=== PATIENT | female | born 1945 | race Caucasian/White ===

== ENCOUNTER → 2023-06-28 10:34 | Outpatient (REF) | payer MEDICARE, OTHER, SELFPAY | LOC: RCS 10:34 | PROVIDERS: ATTENDING PHYSICIAN Internal Medicine Cardiovascular Disease; FAMILY PHYSICIAN Family Medicine | DX: I50.22 Chronic systolic (congestive) heart failure (principal); I48.21 Permanent atrial fibrillation | CPT/HCPCS: 93225; 93226 ==

== ENCOUNTER → 2023-07-04 13:42 | Outpatient (REF) | payer MEDICARE, OTHER, SELFPAY | LOC: HWRCS 13:42 | PROVIDERS: ATTENDING PHYSICIAN Internal Medicine Cardiovascular Disease; FAMILY PHYSICIAN Family Medicine | DX: I50.22 Chronic systolic (congestive) heart failure (principal) | CPT/HCPCS: 93306 ==

== ENCOUNTER → 2024-08-13 09:18 | Outpatient (REF) | payer MEDICARE, OTHER, SELFPAY ==
[2024-08-13 10:06] LABS: % Basophils 0.6 % (0-2); % Eosinophils 1.9 % (0-6); % Immature Granulocytes 1.2 % (0-0.5); % Lymphocytes 24.8 % (20.5-51.1); % Monocytes 10.3 % (1.7-9.3); % Neutrophils 61.2 % (42.2-75.2); Absolute Eosinophils 0.1 10^3/uL (0-0.7); Absolute Immature Granulocytes 0.1 10^3/uL (0-0.05); Absolute Lymphocytes 1.3 10^3/uL (1.2-3.4); Absolute Monocytes 0.5 10^3/uL (0.1-0.6); Absolute Neutrophils 3.1 10^3/uL (1.4-6.5); Hematocrit 38.2 % (37.0-47.0); Hemoglobin 13.2 g/dL (12.0-16.0); Mean Corp Hgb Conc. 34.6 g/dL (33.0-37.0); Mean Corpuscular Hgb 33.7 pg (27.0-31.0); Mean Corpuscular Volume 97.4 fL (81.0-99.0); Mean Platelet Volume 8.5 fL (7.4-10.4); Nucleated Red Blood Cells % 0 %; Platelet Count 257 10^3/uL (130-400); Red Blood Cell Count 3.92 10^6/uL (4.20-5.40); Red Cell Dist. Width 12.4 % (11.5-14.5); White Blood Cell Count 5.1 10^3/uL (4.8-10.8)
[2024-08-13 10:27] LABS: NT-proBNP 1530 pg/ml
[2024-08-13 10:36] LABS: Blood Urea Nitrogen 18 mg/dl (7-17); Calcium 9.8 mg/dl (8.4-10.2); Carbon Dioxide 27 mmol/L (22-30); Chloride 95 mmol/L (98-107); Glucose 99 mg/dl (70-99); Potassium 4.8 mmol/L (3.5-5.1); Sodium 132 mmol/L (135-145); eGFR > 60.00
[2024-08-13 11:18] LABS: TSH Reflex To Free T4 1.63 uIU/ml (0.47-4.68)
== END ==
LOC: REG 09:18
PROVIDERS: ATTENDING PHYSICIAN Internal Medicine Cardiovascular Disease; FAMILY PHYSICIAN Family Medicine
DX: I50.22 Chronic systolic (congestive) heart failure (principal); I48.21 Permanent atrial fibrillation
CPT/HCPCS: 36415; 80048; 83880; 84443; 85025

== ENCOUNTER → 2024-09-04 12:41 | Outpatient (REF) | payer MEDICARE, OTHER, SELFPAY | LOC: RCS 12:41 | PROVIDERS: ATTENDING PHYSICIAN Internal Medicine Cardiovascular Disease; FAMILY PHYSICIAN Family Medicine | DX: I50.22 Chronic systolic (congestive) heart failure (principal) | CPT/HCPCS: 93306 ==

== ENCOUNTER → 2024-09-16 09:17 | Outpatient (REF) | payer MEDICARE, OTHER, SELFPAY ==
[2024-09-16 11:05] LABS: Osmolality Serum 284 mOsm/kg (275-300)
[2024-09-16 12:04] LABS: Blood Urea Nitrogen 22 mg/dl (7-17); Calcium 9.5 mg/dl (8.4-10.2); Carbon Dioxide 25 mmol/L (22-30); Chloride 100 mmol/L (98-107); Glucose 104 mg/dl (70-99); Potassium 4.5 mmol/L (3.5-5.1); Sodium 134 mmol/L (135-145); eGFR > 60.00
[2024-09-16 13:56] LABS: Urine Albumin 2+ (Neg - Trace); Urine Bilirubin Negative (Negative); Urine Character Slightly Cloudy (Clear); Urine Color Yellow; Urine Glucose 4+ (Negative); Urine Ketone Negative (Negative); Urine Leukocyte Negative (Negative); Urine Nitrite Negative (Negative); Urine Occult Blood 2+ (Negative); Urine Urobilinogen Negative (Neg - 1+)
[2024-09-16 14:29] LABS: Urine Squamous Cell >30 /LPF (Few)
[2024-09-16 14:31] LABS: Urine Bacteria Few (Negative); Urine White Cell 0-2 /HPF (0-5)
[2024-09-16 15:10] LABS: Osmolality Urine 471 mOsm/kg (300-900)
[2024-09-16 15:17] LABS: Protein/creatinine Ratio 0.2; Urine Protein 15 mg/dl; Urine Sodium 28 mmol/L (30-90)
== END ==
LOC: REG 09:17
PROVIDERS: ATTENDING PHYSICIAN Internal Medicine Cardiovascular Disease; FAMILY PHYSICIAN Family Medicine
DX: I50.22 Chronic systolic (congestive) heart failure (principal); R31.29 Other microscopic hematuria; E87.1 Hypo-osmolality and hyponatremia
CPT/HCPCS: 36415; 80048; 81003; 81015; 82570; 83930; 83935; 84156; 84300

== ENCOUNTER → 2025-02-26 13:02 | Outpatient (REF) | payer MEDICARE, OTHER, SELFPAY | LOC: RCS 13:02 | PROVIDERS: ATTENDING PHYSICIAN Internal Medicine Cardiovascular Disease; FAMILY PHYSICIAN Family Medicine | DX: I34.0 Nonrheumatic mitral (valve) insufficiency (principal); I50.22 Chronic systolic (congestive) heart failure | CPT/HCPCS: 93306 ==

== ENCOUNTER → 2025-03-04 11:55 | Outpatient (REF) | payer MEDICARE, OTHER, SELFPAY | LOC: SDSPAT 11:55 | PROVIDERS: ATTENDING PHYSICIAN Internal Medicine; FAMILY PHYSICIAN Family Medicine; OTHER PHYSICIAN Internal Medicine Cardiovascular Disease | DX: I34.0 Nonrheumatic mitral (valve) insufficiency (principal) | CPT/HCPCS: 93005 ==

== ENCOUNTER 2025-03-19 07:02 | Day surgery (SDC) | payer MEDICARE, OTHER, SELFPAY ==
[2025-03-04 12:48] VITALS: BMI 35.1
== END 2025-03-19 09:45 | disposition home or self-care (01) ==
LOC: CATH 07:02
PROVIDERS: ATTENDING PHYSICIAN Internal Medicine; FAMILY PHYSICIAN Family Medicine; OTHER PHYSICIAN Internal Medicine Cardiovascular Disease
DX: I08.1 Rheumatic disorders of both mitral and tricuspid valves (principal); I08.8 Other rheumatic multiple valve diseases; E66.9 Obesity, unspecified; I11.0 Hypertensive heart disease with heart failure; I27.20 Pulmonary hypertension, unspecified; I42.8 Other cardiomyopathies; I48.21 Permanent atrial fibrillation; I50.22 Chronic systolic (congestive) heart failure; Z68.35 Body mass index [BMI] 35.0-35.9, adult; Z79.899 Other long term (current) drug therapy; Z79.01 Long term (current) use of anticoagulants; Z90.710 Acquired absence of both cervix and uterus; E87.1 Hypo-osmolality and hyponatremia
CPT/HCPCS: 93312; 93320; 93325

== ENCOUNTER → 2025-03-31 13:11 | Outpatient (REF) | payer MEDICARE, OTHER, SELFPAY | LOC: HWRAD 13:11 | PROVIDERS: ATTENDING PHYSICIAN Thoracic Surgery (Cardiothoracic Vascular Surgery); FAMILY PHYSICIAN Family Medicine | DX: I34.0 Nonrheumatic mitral (valve) insufficiency (principal) | CPT/HCPCS: 71250 ==

== ENCOUNTER 2025-04-01 07:18 | Day surgery (SDC) | payer MEDICARE, OTHER, SELFPAY ==
[2025-04-01] VITALS (10 sets, daily range): BP systolic 81–125; BP diastolic 41–79; BMI 33.3
[2025-04-01] MEDS: NSS 248 ML IV (08:17)
[2025-04-01] MEDS: NSS 1000 IV (12:58)
--- NOTE | 2025-04-01 13:44 | ITS.CL.PN ---
[facility] - Procedure Note
Procedure
Procedure Note:
CARDIAC CATHETERIZATION REPORT
Date of Procedure: 04/01/2025
Referring: Dr. Xavi Virgen MD
Indication: Preoperative assessment ahead of planned surgical mitral valve repair
PROCEDURE(S)
1. right heart catheterization
2. left heart catheterization
3. coronary angiography
ACCESS
1. 6F right radial artery (closure: radial band)
2. 5F right antecubital vein (closure: manual hemostasis)
CATHETERS
1. 5F [place]-Mar[place]
2. 6F JR4
3. 6F JL3.5
MODERATE SEDATION: 25 minutes of moderate sedation was utilized. An independent clinical laboratory medical director was present to assist with and help manage the patient's level of consciousness and physiologic status.
HEMODYNAMIC DATA
LV 128/10 (EDP 18) mmHg
AO 134/71 (mean 100) mmHg
RA 14 mmHg
RV 51/7 (EDP 13) mmHg
PA 53/25 (mean 36) mmHg
PCWP 25 mmHg
SaO2 95.5%
SvO2 68.3%
Hb 11.7 g/dL
CO/CI 5.29/2.89 L/min/m2
SVR 1299 dsc*-5
PVR 2.1 Wood units
CORONARY ANGIOGRAPHY
Dominance: Left
LM: Large, normal
LAD: Large vessel giving rise to a large D2 before wrapping around the apex. There is mild nonobstructive disease only.
LCx: Large vessel giving rise to a small OM1, small OM2, moderate caliber LPL1, small LPL2, and small LPDA. There is mild nonobstructive disease only.
RCA: Small and nondominant
RADIATION: dose 124 mGy; DAP 10.1 Gy*cm2; fluoroscopy time 6.1 min
CONCLUSIONS
1. Moderately elevated biventricular filling pressures and normal cardiac output
2. No aortic valve stenosis
3. Trivial coronary artery disease and a left dominant system
RECOMMENDATIONS
1. Proceed with workup for mitral valve repair
2. Primary prevention of coronary artery disease
Copy to: Dr. Lefty Reveles MD (interstate bus driver); Dr. Xavi Virgen MD (CT surgery); Dr. Caroline Vu MD (PCP)
Signed: Darvin Steel MD, PhD
== END 2025-04-01 13:51 | disposition home or self-care (01) ==
LOC: CATH 07:18
PROVIDERS: ATTENDING PHYSICIAN Student in an Organized Health Care Education/Training Program; FAMILY PHYSICIAN Family Medicine; OTHER PHYSICIAN Internal Medicine Cardiovascular Disease
DX: I25.10 Atherosclerotic heart disease of native coronary artery without angina pectoris (principal); I48.21 Permanent atrial fibrillation; I08.1 Rheumatic disorders of both mitral and tricuspid valves; Z79.01 Long term (current) use of anticoagulants; Z79.899 Other long term (current) drug therapy; I27.20 Pulmonary hypertension, unspecified; E87.1 Hypo-osmolality and hyponatremia
CPT/HCPCS: 99152; 99153; 93460; C1769; C1894; Q9967

== ENCOUNTER 2025-04-08 05:01 | Inpatient (IN) | payer MEDICARE, OTHER, SELFPAY ==
[2025-03-28 12:06] VITALS: BMI 34.8
[2025-03-28 13:13] LABS: Urine Character Clear (Clear)
[2025-03-28 13:13] LABS: Hematocrit 37.3 % (37.0-47.0); Hemoglobin 12.4 g/dL (12.0-16.0); Mean Corp Hgb Conc. 33.2 g/dL (33.0-37.0); Mean Corpuscular Volume 95.4 fL (81.0-99.0); Nucleated Red Blood Cells % 0 %; Platelet Count 280 10^3/uL (130-400); Red Cell Dist. Width 12.6 % (11.5-14.5)
[2025-03-28 13:21] LABS: INR 1.34; PT 16.7 Sec (11.4-14.6)
[2025-03-28 13:40] LABS: Urine Red Blood Cell 0-2 /HPF (0-2); Urine White Cell None Seen /HPF (0-5)
[2025-03-28 13:42] LABS: ALT (SGPT) 26 U/L (0-35); AST (SGOT) 27 U/L (14-36); Albumin 4.4 g/dl (3.5-5.0); Alkaline Phosphatase 48 U/L (38-126); Blood Urea Nitrogen 19 mg/dl (7-17); Calcium 9.7 mg/dl (8.4-10.2); Carbon Dioxide 28 mmol/L (22-30); Chloride 94 mmol/L (98-107); Estimated Creatinine Clearance 58 ml/min; Glucose 83 mg/dl (70-99); Glycohemoglobin (HgbA1c) 5.7 % (4.0-5.9); Potassium 4.5 mmol/L (3.5-5.1); Sodium 130 mmol/L (135-145); Total Protein 7.1 g/dl (6.3-8.2); eGFR > 60.00
--- NOTE | 2025-03-28 14:33 | CM ---
spoke to pt in PAT, we discussed preop Mitral valve teaching including sternal and driving restrictions. she is prev indep, lives wirh her husb in an apt with no steps to enter. she has the CT surgery book, soap and in structions, she is agreeable
to a f/u visit from the ct transitional care nurses after dc. plan is for MVR 04/08, cm role explained and all questions answered.
[2025-04-08] VITALS (15 sets, daily range): BP systolic 83–134; BP diastolic 50–78; BMI 34.0
[2025-04-08] MEDS: LOPRESSOR 12.5 MG PO (05:48)
[2025-04-08] MEDS: MAGNESIUM OXIDE 400 MG PO (05:48)
[2025-04-08] MEDS: PROTONIX 40 MG PO (05:48)
[2025-04-08] MEDS: BACTROBAN 2% OINTMENT 1 APPLIC NASAL ×2 (05:49→21:02)
--- NOTE | 2025-04-08 06:29 | W.CVOR.SURPR ---
CVOR Surgeon Immed Pre Op
-
I have examined this patient prior to performance of the scheduled procedure.
The patient's condition is unchanged from the time of the dictated/written History and
Physical and the patient is able to undergo the scheduled procedure.
MVrR (high chance for replacement) + TVr + MAZE + LAAE
[2025-04-08 07:23] LABS: ACT+ - POC 197 Seconds (82-134)
[2025-04-08 07:47] LABS: Urine Character Clear (Clear)
[2025-04-08 08:26] LABS: ACT+ - POC 560 Seconds (82-134)
[2025-04-08 08:41] LABS: ACT+ - POC 505 Seconds (82-134)
--- NOTE | 2025-04-08 08:49 | CM ---
Reviewed chart. Mrs. Dasilva is in the operating room today. Prior to admission she resides with her spouse in an apartment without any steps to enter. Prior to admission she was independent with adls. Will need to see her functional status after
surgery to see if has any skilled care needs. Medical work-up in progress. The discharge plan is to return home with her spouse and a home visit by the Transitional Care Nurse when medically stable.
[2025-04-08 08:57] LABS: B.E. - POC 1.1 mmol/L; Glucose - POC 101 mg/dl (70-99); HCO3 - POC 25 mmol/L (21-28); Hematocrit - POC 29 % PCV (37-47); Hemodilution- POC Yes; Hemoglobin Calculated - POC 9.9; Ionized Calcium - POC 1.07 mmol/L (1.15-1.33); Lactate - POC 0.38 mmol/L (0.36-0.75); O2 Saturation %Calculated-POC 100.0 % (94-98); PCO2 - POC 36 mmHg (35-48); PO2 - POC 417 mmHg (83-108); POC Comment CPB; Potassium - POC 3.4 mmol/L (3.5-5.1); Sodium - POC 138 mmol/L (136-145); Specimen Type - POC Arterial; pH - POC 7.45 (7.35-7.45)
[2025-04-08 09:07] LABS: ACT+ - POC 587 Seconds (82-134)
[2025-04-08 09:24] LABS: B.E. - POC -0.3 mmol/L; Glucose - POC 112 mg/dl (70-99); HCO3 - POC 28 mmol/L (21-28); Hematocrit - POC 32 % PCV (37-47); Hemodilution- POC Yes; Hemoglobin Calculated - POC 11.0; Ionized Calcium - POC 1.11 mmol/L (1.15-1.33); Lactate - POC 0.38 mmol/L (0.36-0.75); O2 Saturation %Calculated-POC 99.8 % (94-98); PCO2 - POC 60 mmHg (35-48); PO2 - POC 271 mmHg (83-108); POC Comment CPB; Potassium - POC 4.6 mmol/L (3.5-5.1); Sodium - POC 138 mmol/L (136-145); Specimen Type - POC Arterial; pH - POC 7.27 (7.35-7.45)
[2025-04-08 09:35] LABS: ACT+ - POC 588 Seconds (82-134)
[2025-04-08 09:59] LABS: B.E. - POC -0.3 mmol/L; Glucose - POC 141 mg/dl (70-99); HCO3 - POC 24 mmol/L (21-28); Hematocrit - POC 29 % PCV (37-47); Hemodilution- POC Yes; Hemoglobin Calculated - POC 9.8; Ionized Calcium - POC 1.09 mmol/L (1.15-1.33); Lactate - POC 0.41 mmol/L (0.36-0.75); O2 Saturation %Calculated-POC 99.9 % (94-98); PCO2 - POC 34 mmHg (35-48); PO2 - POC 281 mmHg (83-108); POC Comment CPB; Potassium - POC 4.8 mmol/L (3.5-5.1); Sodium - POC 137 mmol/L (136-145); Specimen Type - POC Arterial; pH - POC 7.44 (7.35-7.45)
[2025-04-08 10:06] LABS: ACT+ - POC 214 Seconds (82-134)
[2025-04-08 10:16] LABS: ACT+ - POC 123 Seconds (82-134)
[2025-04-08 10:24] LABS: B.E. - POC -2.6 mmol/L; Glucose - POC 94 mg/dl (70-99); HCO3 - POC 22 mmol/L (21-28); Hematocrit - POC 32 % PCV (37-47); Hemodilution- POC Yes; Hemoglobin Calculated - POC 10.8; Ionized Calcium - POC 1.17 mmol/L (1.15-1.33); Lactate - POC < 0.30 mmol/L (0.36-0.75); O2 Saturation %Calculated-POC 100.0 % (94-98); PCO2 - POC 38 mmHg (35-48); PO2 - POC 425 mmHg (83-108); POC Comment PRE; Potassium - POC 3.8 mmol/L (3.5-5.1); Sodium - POC 138 mmol/L (136-145); Specimen Type - POC Arterial; pH - POC 7.38 (7.35-7.45)
--- NOTE | 2025-04-08 10:59 | W.PN.CT.SURG ---
CT Surgery Operative Note
-
CARDIAC SURGERY OPERATIVE REPORT
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
Postoperative Diagnosis: Same
Procedure(s) Performed:
1. Central sternotomy with aortic and bicaval cannulation
2. Radical mitral valve repair [cleft closure of P2 P3 and 32 mm band annuloplasty]
3. Simple tricuspid valve repair [30 mm band annuloplasty]
4. Left atrial maze [using RF and cryoablation] left atrial appendage exclusion
5. Placement of temporary atrial ventricular pacing wires
6. Transesophageal echocardiography
Date of Surgery: 04/08/2025
Comorbidities:
1. 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
2. Functional tricuspid valve insufficiency
3. Persistent A-fib on chronic anticoagulation
4. Pulmonary hypertension
5. Nonischemic cardiomyopathy
Attending Surgeon: Xavi Virgen MD, MS
Assistants: Cecille Guardado PA-C (present and necessary to media center assistant, retraction, suction, exposure, suture management, and wound closure under my direction)
Anesthesiology: Harrison Escalante MD and Jae Arita CRNA
Scrub and Circulating RNs: Anisha Cooper, [facility] Tech, Bryan Nichols RN
Computer Systems Manager: Heather Cowan CCP
Anesthesia: GETA
EBL: per perfusion records
Products: None, CellSaver
CPB Time: 83 minutes
Aortic Cross Clamp Time: 66 minutes
Indication(s) for Procedures: This is a 79-year-old female with known mitral valve insufficiency has been developing worsening shortness of breath while walking and doing housework. She has noticed this has been progressing over the last year. Her
EF is low normal at 50% with no significant regional wall motion abnormalities. Her mitral valve had a combination of annular dilatation as well as some degeneration of the P2 scallop and what look like retracted P3 leaflet. She was not a
candidate for MV STEFANO when discussed in multidisciplinary setting. She was offered surgical intervention in the form of possible mitral valve repair or replacement as well as bicuspid valve repair and left atrial ablation and appendage exclusion.
Mitral Valve Description: Dilated annulus, retracted P3 leaflet that was filled underneath itself, but overall the leaflet tissue appeared to be usable.
Tricuspid Valve Description: Dilated annulus.
Findings: Left ventricular ejection fraction preoperatively is 55% with no significant regional wall motion abnormalities. Cardiac index starting the surgery was 1.5 without inotropic support. Following surgery EF remained the same at 55% with no
new regional wall motion abnormalities. Cardiac index had improved significantly to 2.0 on low-dose dobutamine at 3. Her mitral valve was repaired using a combination of cleft closure at P2 and P3 as well as a 32 mm band annuloplasty securing the
valve from trigone to trigone. The P3 scallop was present but filled underneath itself. I unraveled it and then tacked it to the free margin of the P2 leaflet and essentially close this cleft. A total of 9 nonpledgeted 2 Ethibond sutures were
placed circumferentially securing the band into place with core knots. Tricuspid valve was repaired using a 30 mm band annuloplasty from the midportion of the septal leaflet to the anterior septal commissure using a total of 8 nonpledgeted 2
Ethibond sutures with core knots. A full left atrial ablation was performed, see the ablation lines below. Left atrial appendage was also verified to be free of any thrombus or debris preoperatively and found to be totally occlusive
postoperatively after applying a 40 mm clip flush to the base. After, of cardiopulmonary bypass, there was no residual mitral valve insufficiency, the mean gradient across the mitral valve was 3 mmHg. There was no residual tricuspid valve
insufficiency. She did not require any blood products. She was actually in sinus rhythm and only on low-dose dobutamine at 3.
Ablation Lines:
1. Box lesion to posterior LA wall
2. NICOLE lesion + NICOLE Exclusion + Division of Ligament of Felix
3. Coronary sinus lesion
4. Posterior mitral annular line toward P2/P3
Specimen(s): None.
Prosthesis: 32 mm Laguna physio flex mitral valve annuloplasty band, serial #[id number], 30 mm Medtronic triad tricuspid valve band, serial number [id number], 40 mm left atrial appendage clip, serial #[id number].
Description of Procedure: The patient was taken to the operating room. Their identity and procedure to be performed were verified and they were positioned supine on the operating table. Induction via general anesthesia with endotracheal intubation
was performed and central venous access and arterial monitoring were inserted. A preoperative transesophageal echocardiogram was performed to assess cardiac function and valvular function. The patient was then prepped and draped from chin to feet in
a sterile fashion. A preoperative time-out was performed with all members of the team present. A midline chest incision was performed along with median sternotomy. The innominate vein was isolated. Full heparinization was given (a total of 50,000
units). We created a pericardial well. The aortic cannulation site was chosen where it was soft, pliable, and free of calcium. Cannulation was performed with an arterial cannula in the ascending aorta, angled metal tip cannular in the superior vena
cava and straight bendable cannula in the inferior vena cava. The arterial cannula line had an appropriate bounce and correlating pressures. Next, a root vent/antegrade cannula was inserted into the ascending aorta. The ACT was confirmed to be over
400 and retrograde autologous priming was performed before commencing cardiopulmonary bypass. The SVC and IVC were then circumferentially freed and the encompass clamp was then passed underneath the SVC and IVC across the transverse and oblique
sinuses, respectively. 3 successful ablations were then performed using the encompass clamp. The pulmonary artery was away from the aorta to facilitate a clamp site. Sondergaard�s groove was developed. The aortic cross-clamp was placed
after decreasing the flow on the bypass and mean arterial pressure. A total of 1.2L initial dose of antegrade Del-Nido cardioplegia solution was given and planned for re-dosing every 6 minutes as necessary. There was rapid electro-mechanical arrest
of the heart at 300 cc of cardioplegia. The left ventricle was observed for distention on echocardiogram and manual palpation. Cold slush was placed into a lap on the RV and we systemically cooled to 34 degrees centigrade. Once heart was fully
arrested was rotated medially and the ligament of Felix was divided in the left atrial appendage was clipped flush the base with a 40 mm device.
Carbon dioxide was used to flood the field the mitral valve was accessed via the left atrial followed by valve analysis. Cryoablation was then performed to the coronary sinus lesion in the mitral isthmus as well as left atrial appendage line
connecting the box lesion. The mitral valve was repaired as described above. The left ventricular vent was repositioned across the mitral valve into the left ventricular and the left atrium was closed with a 3-0 prolene. I then placed Vesseloops
around the SVC and IVC in order to perform isolation and the right atrium was open in the a long 2 no fashion. Stay sutures were then placed to facilitate exposure and the tricuspid valve was repaired with a band annuloplasty going from the mid
septal portion of the annulus to the anterior septal commissure. I then visualized the [place] to make sure that it was not entrapped inadvertently within the annuloplasty band. It was not the RA suture line was closed in two layers with 5-0 prolene
in a running fashion. The snares were then removed.
De-airing maneuvers were performed and temporary atrial and ventricular pacing wires were placed at the SVC/RA junction and base of the right ventricle, respectively. The patient was placed in a Trendelenburg position and flows on bypass were
lowered. The aortic cross clamp was removed and flows were slowly brought back up. The left atrial suture line was hemostatic. Transesophageal echocardiography revealed no evidence of systolic anterior motion and ventricular function was normal.
Once de-airing was satisfactory the left ventricular and root vents were removed. After verifying acceptable parameters, we initiated weaning from cardiopulmonary bypass. Once we were off cardiopulmonary bypass, the venous cannulas was clamped and
removed sequentially. A test dose of protamine was administered and the patient was monitored for any adverse reaction before resuming protamine. Once half of the protamine dose was delivered, pump suckers were turned off and the systolic blood
pressure was lowered for aortic decannulation. The aortic cannula was removed and purse strings were tied down. All cannulation sites were oversewn with a 4-0 prolene. The left atrial suture line was inspected and hemostasis was confirmed.
Mediastinal hemostasis was obtained. Two #24 Mian drains were placed within the pericardium and a single #19 Mian drain to the right hemithorax. The sternum was approximated with 4 #7 single and 3 #8 double stainless steel wires. Fascia was
approximated with #1 vicryl suture. The subcutaneous, dermis and epidermis were closed in layers in a running fashion. The skin wound was cleansed and dressed.
All instrument, sponge, and needle counts were confirmed to be correct x 2 at the end of the operation. The patient was transferred to the cardiac intensive care unit in critical but stable condition.
I, Dr. Xavi Virgen, was present, scrubbed for, and performed all critical elements of this procedure.
Xavi Virgen MD, MS
Cardiothoracic Surgeon
[facility]
This dictation was created using the [employer] dictation system. Please excuse any grammatical, typographical, or 'sound alike' errors
--- NOTE | 2025-04-08 11:05 | W.PN.CD ---
Addendum entered and electronically signed by Raheem Palma MD 04/08/25 14:23:
I reviewed and agree with the note by BEENA and it accurately reflects our care.
I saw and evaluated the patient, and I provided the substantive portion of the medical decision making. My assessment and plan is below:
79F with heart failure with midrange ejection fraction, NICM, pulmonary hypertension from HF, permanent atrial fibrillation, severe MR, and moderate TR presents for cardiac surgery, now s/p mitral and tricuspid valve repair. She remains intubated
but opens eyes to voice and is responding appropriately. Following all commands.
Physical exam: Well adhesed midsternotomy scar, RRR, no murmurs, clear lungs anteriorly, no lower extremity edema
Telemetry: Atrial paced
ECG: Normal sinus rhythm with first-degree AV block, nonspecific ST�T wave abnormality
Severe MR s/p mitral valve repair, TR status post tricuspid valve repair by Dr. Virgen on 04/08. Continue routine postoperative care per CT surgery. Plan is to extubate patient shortly. Wean vasoactive infusions as tolerated.
Atrial fibrillation: Currently in an atrial paced rhythm. Resume anticoagulation when safe from surgical standpoint.
We will continue to follow along with you.
Original Note:
Today's Communication / Plan
-
Follow telemetry
Extubation per CT surgery
Impression / Plan
-
I/P: 79F with heart failure with midrange ejection fraction, NICM, pulmonary hypertension from HF, permanent atrial fibrillation, severe MR MR, and moderate TR presents for cardiac surgery
Primary scrip clerk: Dr. Reveles
Severe mitral regurgitation status post radical mitral valve repair (cleft closure of P2 P3 and 32 mm band annuloplasty) & tricuspid regurgitation status post repair (30 mm band) on 04/08/[address] Virgen
- Left atrial maze and 40 mm NICOLE clip during surgery
- Pre-EDDIE LVEF 55%, post 55% without new RWMA, MV MG 3 mmHg & without TV insufficiency
- CI 1.5 starting the surgery without inotropic support
- CI now > 2.0, was on dobutamine, now on Cardene, she did not require blood products
- EKG sinus rhythm with prolonged QTc, EKG in a.m.
Heart failure with midrange ejection fraction (LVEF 50%), chronic
- Follow volume status during recovery
- Resume GDMT when able
- Higher doses of spironolactone was associated with mild hyponatremia
Permanent atrial fibrillation
- Currently being paced and in sinus rhythm
- Oral anticoagulation: Apixaban on hold
- [id number] score of 5 (HF, age 79, aortic plaque, female gender)
Physical Exam
Vital Signs/Labs
Vital Signs
Temp Pulse Resp BP Pulse Ox
97.7 F 65 16 134/69 100
04/08/25 05:22 04/08/25 05:22 04/08/25 05:22 04/08/25 05:09 04/08/25 05:22
04/07/25 04/08/25 04/09/25
06:59 06:59 06:59
Actual Weight 179 lb 10.828 oz
PT 16.7 Sec (11.4-14.6) H 03/28/25 12:19
INR 1.34 03/28/25 12:19
Physical Exam
Constitutional: No acute distress and Comfortable
EENT: Anicteric and Moist mucous membranes
Cardiovascular: Rhythm & rate is regular, Pedal edema is absent and S1S2 is normal
Respiratory: Lungs clear to auscul. and Other (Mechanical ventilation)
GI: Soft, Distention absent and Flat
Neuro/Psych: Other (Sedated)
Other: Skin (Warm and dry without edema)
Data Reviewed
-
Date of Service: April 08, 2025
EKG: Report Reviewed by me
Echo: Report Reviewed by me
Labs: Labs Reviewed by me
Old Records: Reviewed
[2025-04-08 11:10] LABS: Glucose - Point of Care 118 mg/dl (70-99)
--- NOTE | 2025-04-08 11:13 | W.PN.UPDATE ---
Update Note
Progress Note Update
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
IV fluids: 1100
U.O.:� 400
Blood:� none
Wires:� A + V wires
Drips: Dobutamine @ 3, precedex, Cardene @ 2.5
NEURO: sedated, pupils +2mm B/L
RESP: #8OT @24cm> 500/100%/14/5. Lungs clear B/L. 2 mediastinal (5cc on arrival) and R pleural (5cc on arrival) chest tubes to -20cm suction. Sanguineous drainage
CV: RRR +S1, S2, no S3, no�rub, no murmur. Dermabond to median sternotomy. RIJ w/[place] locked @ 40cm. PA 46/20; CVP 10; Temp 94.1F
ABD: large, round, soft, no BS
EXT: no edema, +2/4 DP pulses B/L, no femoral bruit, left radial A-line intact
: Hurtado with clear yellow urine
�
A/P: POD #0 s/p Mitral repair # 32mm band, tricuspid repair #30mm band, MAZE
EDDIE: Nl EF, MV mean 3mmHg, no MR, no PVL
- wean and extubate
- will need instruction regarding antibiotic prophylaxis for dental and invasive procedures
- need pre discharge TTE-ordered for 04/11
- initial CXR with ETT at tona, pulled back 2 cm & repeat CXR with ETT approx 1cm above tona. [place] inserted to 50cm & good position on CXR
�
# acute surgical blood loss anemia-expected
- trend CBC
�
# AF (on Eliquis)
CHADs-VASc score: 5�points (age, gemder, HF hx, HTN). Stroke risk was 7.2% per year in >90,000 patients (the [place] Atrial Fibrillation Cohort Study) and 10.0% risk of stroke/TIA/systemic embolism.
�
# PreDM (A1C 5.7)
- insulin infusion x 24h
- on Jardiance @ home
- may need SSI
# HFpEF (50%)
- on metoprolol, spironolactone, Jardiance, Entresto @ home
# Chronic hyponatremia (baseline Na+ 130)
- resume diuretic as BP permits
�
# Class I obesity (BMI 33.9)
- calorie restrict diet
[2025-04-08 11:18] LABS: Hematocrit 31.2 % (37.0-47.0); Hemoglobin 10.6 g/dL (12.0-16.0); Platelet Count 172 10^3/uL (130-400)
[2025-04-08 11:19] LABS: B.E. -1.7 mmol/L; HCO3 23.0 mmol/L (21-28); O2 Saturation % 100.0 % (94-98); PCO2 38 mmHg (32-35); PO2 256 mmHg (83-108); Potassium 4.1 mMOL/L (3.5-5.1); Sodium 133 mMOL/L (136-145)
--- NOTE | 2025-04-08 11:30 | PTCARENOTE ---
Patient received from CVOR at 1100; Sedated and intubated; NSR w/ AVB per monitor; VSS; palpable pulses present; Lungs diminished at bases; ETT size 8 positioned and secured at 22 cm @ lip; Ventilator settings SIMV 12/500/5/FiO2 40%; CTx3 to -20 cm
wall suction draining bloody drainage; Hypoactive BS; Hurtado catheter in place draining clear, yellow urine; Sternal incision glued, approximated, CT dressing CDI; L radial A-line in place, [place]-taryn advanced from 40 to 50 at bedside per CTNP in RIJ
Cordis - all lines zeroed and leveled; PIVx1; insulin/precedex/dobut infusing - see nursing flowsheets for further details; see nursing documentation for further details.
[2025-04-08 11:36] LABS: INR 1.61; PT 19.3 Sec (11.4-14.6)
[2025-04-08 11:37] LABS: APTT 32.0 Sec (23.4-35.0)
[2025-04-08 12:01] LABS: Glucose - Point of Care 146 mg/dl (70-99)
[2025-04-08] MEDS: ANCEF 10 IV ×2 (12:07)
[2025-04-08] MEDS: NEURONTIN PO ×2 (12:08→15:59)
[2025-04-08] MEDS: NSS 500 IV (12:08)
[2025-04-08 12:13] LABS: Blood Urea Nitrogen 17 mg/dl (7-17); Estimated Creatinine Clearance 76 ml/min; Glucose 112 mg/dl (70-99); Magnesium 2.8 mg/dl (1.6-2.3)
[2025-04-08 12:57] LABS: Glucose - Point of Care 115 mg/dl (70-99)
[2025-04-08] MEDS: OFIRMEV 100 IV (13:22)
--- NOTE | 2025-04-08 13:52 | CON.INTV ---
Consultation
Consultation Request
Date/Time Consultation Requested: 04/08/2025
Date/Time Consultation Performed: 04/08/2025
Requesting Provider: Dr. Virgen
Performing Provider: Dr. Sergio Cueva
Reason for Consultation: Status post radical mitral valve repair
Medical History
-
History of Present Illness:
79-year-old woman with history of atrial fibrillation, mitral irritation, pulmonary hypertension, nonischemic cardiomyopathy who was admitted to the hospital for mitral valve repair. Procedure underwent on 04/08/2025 without complications.
Critical care consulted for postoperative care.
Patient currently in the critical care unit, intubated and sedated.
Records reviewed.
Past Medical History
Past Medical History: Other (See assessment and plan)
Social History
Tobacco: Other (Never)
Alcohol: Daily (1 small drink)
Personal:
Family History
Family History: Reviewed & Not Pertinent
Allergies / Home Medications
Allergies
Allergy/AdvReac Type Severity Reaction Status Date / Time
No Known Allergies Allergy Verified 04/01/25 07:50
Home Medications
�Medication �Instructions �Recorded �Confirmed �Last Taken �Type
acetaminophen 325 mg tablet 325 - 650 mg PO Q6H PRN Pain 04/01/22 04/08/25 04/07/25 16:00 History
(Tylenol)
calcium 600 mg (as 1 tab PO BID Supplement 02/28/25 04/08/25 03/31/25 08:00 History
carbonate)-vitamin D3 10 mcg (400
unit) tablet (Calcium 600 + D(3))
metoprolol succinate 100 mg 100 mg PO HS Heart Failure 02/28/25 04/08/25 04/07/25 20:00 History
tablet,extended release 24 hr
sacubitril 97 mg-valsartan 103 mg 1 tab PO BID Heart Failure 02/28/25 04/08/25 04/05/25 20:30 History
tablet (Entresto)
spironolactone 25 mg tablet 12.5 mg PO DAILY Fluid 02/28/25 04/08/25 04/05/25 10:00 History
Retention/Swelling
vit C 250 mg-vit E 90 mg-zinc 40 1 tab PO BID Supplement 02/28/25 04/08/25 04/07/25 20:00 History
mg-copper 1 [id number]
capsule (PreserVision AREDS-2)
empagliflozin 10 mg tablet 10 mg PO DAILY Heart Failure 03/19/25 04/08/25 04/04/25 History
(Jardiance)
apixaban 5 mg tablet (Eliquis) 5 mg PO BID Blood Clot 04/07/25 04/08/25 04/04/25 20:30 History
Prevention/Tx
furosemide 40 mg tablet (Lasix) 40 mg PO DAILY Fluid 04/07/25 04/08/25 04/07/25 08:00 History
Retention/Swelling
Review of Systems
-
Unable to Obtain full review of systems at this time due to: Patient Intubation
Vitals / Labs / Diagnostic Testing
Vital Signs
Temp Pulse Resp BP Pulse Ox
95.7 F L 76 12 112/64 97
04/08/25 13:00 04/08/25 13:00 04/08/25 13:00 04/08/25 13:00 04/08/25 13:00
Lab Data
04/08/25 10:58
Laboratory Results
04/08/25
10:58
PT 19.3 H
INR 1.61
APTT 32.0
pH 7.39
pCO2 38 H
pO2 256 H
HCO3 23.0
O2 Delivery Level
Diagnostic Testing:
Physical Exam
-
HEENT: Normocephalic and Other (ET tube in place without secretion)
Cardiovascular: S1/S2
Respiratory: Clear
GI: Soft and Non Distended
Neurology: Other (Sedated, on mechanical ventilation)
Skin: Warm
General: Comfortable
Assessment
-
79-year-old woman with past medical history noted. Electively admitted for mitral valve repair. Procedure underwent without complications on 04/08/2025.
Critical care consulted for postoperative management.
Status post radical mitral valve repair 04/08/2025-Dr. Virgen
Postoperative mechanical ventilation
Postoperative blood loss anemia
Conditions present prior admission:
History of mitral valve regurgitation-normal LVEF.
Heart failure with preserved ejection fraction
Permanent atrial fibrillation-on chronic anticoagulant
Hypertension
Assessment and plan:
He doing well postop-currently on mechanical ventilation and appears comfortable.
ABG reviewed:Adequate oxygenation and ventilation.
Continue SIMV mode with no change
Spontaneous breathing trial per protocol once sedation wears off.
Anemia noted-no evidence of acute bleeding
Follow H&H serially
Hemodynamics -acceptable off vasoactive drugs.
Adequate urinary output
Follow renal function.
Chest tube with no excessive drainage-no air leak.
Chest x-ray reviewed: With no pneumothorax or fluid collections.
Remain nothing by mouth
Head of the bed elevation
Glycemic control per protocol
DVT prophylaxis when safe from the surgical perspective.
Critical care statement: A total of 32 minutes of critical care time was provided for this patient today. This includes management of unstable vital signs, evaluation of the patient at bedside, reviewing the patient's pertinent medical records
including ventilator settings, arterial blood gases, radiographs, microbiology, laboratory evaluations and discussion with primary team, critical care nursing, and respiratory therapy.
[2025-04-08 13:55] LABS: Glucose - Point of Care 108 mg/dl (70-99)
[2025-04-08 14:32] LABS: B.E. - POC -2.5 mmol/L; Glucose - POC 125 mg/dl (70-99); HCO3 - POC 23 mmol/L (21-28); Hematocrit - POC 27 % PCV (37-47); Hemodilution- POC Yes; Hemoglobin Calculated - POC 9.0; Ionized Calcium - POC 1.38 mmol/L (1.15-1.33); Lactate - POC < 0.30 mmol/L (0.36-0.75); O2 Saturation %Calculated-POC 99.9 % (94-98); PCO2 - POC 39 mmHg (35-48); PO2 - POC 308 mmHg (83-108); POC Comment POST; Potassium - POC 4.2 mmol/L (3.5-5.1); Sodium - POC 139 mmol/L (136-145); Specimen Type - POC Arterial; pH - POC 7.37 (7.35-7.45)
[2025-04-08 14:35] LABS: B.E. - POC -2.5 mmol/L; Blood Urea Nitrogen - POC 15 mg/dl (3-120); Chloride - POC 104 mmol/L (96-111); Creatinine - POC 0.70 mg/dl (0.3-1.0); Glucose - POC 120 mg/dl (70-99); HCO3 - POC 24 mmol/L (21-28); Hematocrit - POC 34 % PCV (37-47); Hemodilution- POC Yes; Hemoglobin Calculated - POC 11.7; Ionized Calcium - POC 1.37 mmol/L (1.15-1.33); Lactate - POC 1.70 mmol/L (0.36-0.75); O2 Saturation %Calculated-POC 95.2 % (94-98); PCO2 - POC 46 mmHg (35-48); PO2 - POC 84 mmHg (83-108); Potassium - POC 3.4 mmol/L (3.5-5.1); Sodium - POC 141 mmol/L (136-145); Specimen Type - POC Arterial; pH - POC 7.32 (7.35-7.45)
[2025-04-08] MEDS: DILAUDID 0.5 MG IV ×2 (14:44→19:14)
--- NOTE | 2025-04-08 15:16 | PTCARENOTE ---
pt extubated @ 1440 to 6L NC w/o incident. able to follow all commands and state name and . pox 98%
[2025-04-08 15:24] LABS: Hematocrit 32.1 % (37.0-47.0); Hemoglobin 11.0 g/dL (12.0-16.0); Platelet Count 211 10^3/uL (130-400)
[2025-04-08] MEDS: ANCEF 5 IV ×2 (15:43→23:18)
[2025-04-08] MEDS: LOW STRENGTH ASPIRIN 81 MG PO (15:43)
[2025-04-08] MEDS: PACERONE PO (15:59)
[2025-04-08 16:34] LABS: B.E. - POC -1.1 mmol/L; Blood Urea Nitrogen - POC 16 mg/dl (3-120); Chloride - POC 106 mmol/L (96-111); Creatinine - POC 0.73 mg/dl (0.3-1.0); Glucose - POC 123 mg/dl (70-99); HCO3 - POC 25 mmol/L (21-28); Hematocrit - POC 33 % PCV (37-47); Hemodilution- POC No; Hemoglobin Calculated - POC 11.3; Ionized Calcium - POC 1.37 mmol/L (1.15-1.33); Lactate - POC 0.82 mmol/L (0.36-0.75); O2 Saturation %Calculated-POC 97.8 % (94-98); PCO2 - POC 44 mmHg (35-48); PO2 - POC 106 mmHg (83-108); Potassium - POC 3.8 mmol/L (3.5-5.1); Sodium - POC 141 mmol/L (136-145); Specimen Type - POC Arterial; pH - POC 7.36 (7.35-7.45)
[2025-04-08 17:03] LABS: Glucose - Point of Care 110 mg/dl (70-99)
[2025-04-08 17:25] LABS: Glucose - Point of Care 121 mg/dl (70-99)
[2025-04-08 19:14] LABS: Glucose - Point of Care 118 mg/dl (70-99)
--- NOTE | 2025-04-08 20:00 | PTCARENOTE ---
assumed care of pt from previous RN. pt A&Ox4, bedrest s/p CVOR. R IJ cordis w/ swan floated to 50cm. L radial a-line. all lines leveled, zeroed, flushed. A/V temp epicardial wires. currently A-paced, settings AAI 70/10/0.4. POX 96% on [address] x3
(R pleural, mediastinal x2) to -20cm wall suction, draining sanguineous drainage. abd s/n, round, obese. hypoactive BS. kruse catheter draining clear, yellow colored urine. all surgical sites stable, CDI. surgical bra placed per order. PIV intact.
see worklist for complete nursing assessment, interventions, VS, and I&Os.
[2025-04-08 21:08] LABS: Glucose - Point of Care 91 mg/dl (70-99)
[2025-04-08] MEDS: SENOKOT 8.6 MG PO (21:15)
[2025-04-08 23:14] LABS: Glucose - Point of Care 122 mg/dl (70-99)
[2025-04-08] MEDS: TYLENOL 975 MG PO (23:17)
[2025-04-08] MEDS: NEURONTIN 100 MG PO (23:17)
[2025-04-09] VITALS (28 sets, daily range): BP systolic 84–130; BP diastolic 34–78; PULSE 78; O2SAT 97; BMI 34.6
--- NOTE | 2025-04-09 | PTCARENOTE ---
assessment remains unchanged. CT drainage WNL. U/O <0.5ml/kg/h. CT PA aware.
[2025-04-09 01:05] LABS: Glucose - Point of Care 98 mg/dl (70-99)
[2025-04-09 03:24] LABS: Glucose - Point of Care 87 mg/dl (70-99)
[2025-04-09] MEDS: ROXICODONE 5 MG PO (03:39)
[2025-04-09 03:49] LABS: Hematocrit 29.7 % (37.0-47.0); Hemoglobin 10.1 g/dL (12.0-16.0); Mean Corp Hgb Conc. 34.0 g/dL (33.0-37.0); Mean Corpuscular Volume 94.3 fL (81.0-99.0); Platelet Count 204 10^3/uL (130-400); Red Cell Dist. Width 13.2 % (11.5-14.5)
--- NOTE | 2025-04-09 03:53 | W.PN.CT ---
Today's Communication / Plan
-
Plan:
-No major issues overnight. Hemodynamically and neurologically intact
-Pt was successfully extubated yesterday 04/08/25 @ 1445
-On Dobutamine @ 3 mc/kg/min, and insulin gtt per protocol
-Last CI 2.42, MVO2 70.5% , U/O since OR 1070 mL
-Monitor chest tube drainage: 2meds 70/145, R pleural 70/130. F/U AM CxR
-Maintain temporary PW
-Holding BB while on Dobutamine
-Held Amiodarone last night d/t HR 60's on Dobutamine
-Wean Dobutamine as tolerated
-Maintain [place]/A-line while on Dobutamine
-Keep kruse for accurate I/O's while on Dobutamine
-Will D/C insulin gtt per protocol
-Maintain cordis
-Encourage use of IS
-Wean off O2 as tolerated
-OOB into chair/Ambulate
Assessment / Plan
-
-S/P Central sternotomy with aortic and bicaval cannulation/Radical mitral valve repair [cleft closure of P2 P3 and 32 mm band annuloplasty]/Simple tricuspid valve repair [30 mm band annuloplasty]/Left atrial maze [using RF and cryoablation] left
atrial appendage exclusion, by Dr. Virgen, 04/08/25, pod#1
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
-Functional tricuspid valve insufficiency
-Persistent A-fib on chronic anticoagulation with Eliquis
-Pulmonary hypertension
-Nonischemic cardiomyopathy
-LVEF 50-55%
-Hyponatremia
-Class 1 obesity (BMI 34)
-Uterine prolapse
-S/P tubal ligation
-S/P hysterectomy
-S/P Mohs x 2
-Acute postop blood loss anemia (stable without blood transfusion)
-Acute postop atelectasis
-Acute postop hypovolemia with subsequent hypervolemia
Discussed patient care with: Cardiology, Nursing, Respiratory Therapy, Pharmacy and Care Team
Subjective
Procedure
S/P Central sternotomy with aortic and bicaval cannulation/Radical mitral valve repair [cleft closure of P2 P3 and 32 mm band annuloplasty]/Simple tricuspid valve repair [30 mm band annuloplasty]/Left atrial maze [using RF and cryoablation] left
atrial appendage exclusion, by Dr. Virgen, 04/08/25,
-
Date of Service: April 09, 2025
Pt c/o incisional pain, otherwise feels well
Objective Data
-
Lab Results
04/09/25 03:16
PT 19.3 Sec (11.4-14.6) H 04/08/25 10:58
INR 1.61 04/08/25 10:58
APTT 32.0 Sec (23.4-35.0) 04/08/25 10:58
Vital Signs
Vital Signs
Temp Pulse Resp BP Pulse Ox
97.7 F 72 22 102/49 97
04/09/25 03:00 04/09/25 03:45 04/09/25 03:45 04/09/25 03:00 04/09/25 03:45
CT Intake/Output/Weight
04/08/25 04/08/25 04/09/25
06:59 18:59 06:59
Intake Total 520.4 / 836.7 316.3 / 836.7
Output Total 970 / 1290 320 / 1290
Balance -449.6 / -453.3 -3.7 / -453.3
SaO2: 97 (2L)
Physical Exam
-
General: Awake, Oriented and AOx3
Cardiovascular: Regular rate & rhythm, No Murmurs, No Rub and No Gallop
Respiratory: Decreased Breath Sounds (at bases, otherwise clear)
Sternum: Stable
Incision: Clean, Dry, Intact and Dressing Intact
Extremities: Other (+trace edema)
Data Reviewed
-
Lab Results: Results Reviewed
Medications: Active Meds Reviewed
Chest X-Ray: Report Reviewed and Image Reviewed
ECG: Report Reviewed and Image Reviewed
--- NOTE | 2025-04-09 03:55 | PTCARENOTE ---
no acute changes. AM labs collected and sent. EKG completed. c/o pain, see MAR. U/O remains <0.5ml/kg/h. CT PA aware.
[2025-04-09 04:05] LABS: Blood Urea Nitrogen 20 mg/dl (7-17); Calcium 9.1 mg/dl (8.4-10.2); Carbon Dioxide 21 mmol/L (22-30); Chloride 108 mmol/L (98-107); Estimated Creatinine Clearance 76 ml/min; Glucose 83 mg/dl (70-99); Magnesium 2.7 mg/dl (1.6-2.3); Potassium 4.3 mmol/L (3.5-5.1); Sodium 137 mmol/L (135-145); eGFR > 60.00
[2025-04-09 04:54] LABS: Hepatitis C Antibody Negative (Negative)
[2025-04-09 05:05] LABS: Glucose - Point of Care 106 mg/dl (70-99)
[2025-04-09] MEDS: TYLENOL 975 MG PO ×3 (05:43→22:00)
[2025-04-09] MEDS: SODIUM BICARBONATE 50 MEQ IV (05:49)
[2025-04-09 07:15] LABS: Glucose - Point of Care 82 mg/dl (70-99)
--- NOTE | 2025-04-09 07:51 | W.PN.ANS.POP ---
Anesthesia Post Operative
- Anesthesia Post Op Note
Vital Signs Stable-See Nursing Note: Yes
Airway Patent: Yes
Adequate Pain Control: Yes
Change in Mental Status: No
Current Postoperative Nausea & Vomiting: No
Anesthesia Complications: No
General Anesthetic Recall: No
Unplanned Admission: No
Post Op Hydration Adequate: Yes
--- NOTE | 2025-04-09 08:30 | PTCARENOTE ---
Assumed care of patient. Walking rounds completed with previous RN. Pt assessed while she was sitting up in the chair. Pt alert and oriented x4. Rates sternal pain 2/10. Denies nausea and shortness of breath. ALEXANDER with equals strength. SR with 1st
degree AVB and frequent PACs with rates in the 70s. BP 109/54 via cuff, correlates with cuff BP. Heart tones audible. PA pressures 30s-40s/10s. CVP 4-5 sitting up in the chair. CI 2.32. Dobutamine infusion placed from 3 to 2 per orders. Bilateral
radial and DP pulses palpable. No edema noted. POX 99% on 2L NC, titrated to RA, POX 94%. Lungs diminished in the bases. No cough noted. IS encouraged-500mL achieved. Right pleural chest tube to -20cm suction draining serosanguineous fluid.
Mediastinal chest tubes x2 y-sited to 1 atrium to -20cm suction draining serosanguineous fluid. No air leaks, tidaling, crepitus noted. Abdomen soft, nontender. Hypoactive BS. Pt tolerating clear liquid diet. Hurtado catheter intact draining
inadequate amounts of clear yellow urine-CT FLOATLIGHT LOADING SUPERVISOR notified. Sternal incision approximated, SCOTT. CT dressing CDI. Right IJ cordis with swan floated to 50cm. Left radial juanjose intact, All lines flushed, leveled, zeroed. Left wrist 20g PIV infusing
insulin gtt per Critical Care Glycemic Protocol. See MAR for medication administration. See worklist for complete nursing assessment. Plan of care reviewed and patient in agreement.
[2025-04-09] MEDS: ANCEF 5 IV (08:52)
[2025-04-09] MEDS: BACTROBAN 2% OINTMENT 1 APPLIC NASAL ×2 (08:52→20:05)
[2025-04-09] MEDS: PACERONE 200 MG PO ×2 (08:53→17:04)
[2025-04-09] MEDS: LOW STRENGTH ASPIRIN 81 MG PO (08:53)
[2025-04-09] MEDS: PROTONIX 40 MG PO (08:53)
[2025-04-09] MEDS: LASIX 20 MG IV ×2 (08:53→16:40)
[2025-04-09] MEDS: SENOKOT 8.6 MG PO ×2 (08:53→20:05)
[2025-04-09] MEDS: LIDOCAINE 4% PATCH 1 PATCH TOPICAL (08:53)
[2025-04-09] MEDS: NEURONTIN 100 MG PO ×3 (08:53→21:59)
[2025-04-09] MEDS: NSS IV (08:54)
[2025-04-09 09:03] LABS: Glucose - Point of Care 94 mg/dl (70-99)
--- NOTE | 2025-04-09 09:43 | CM ---
Reviewed chart. Met jossieeugenio Turner and Mrs. Gamboa to review discharge plans. She states she is feeling okay. She states prior to admission she resides with her spouse in the independent section at [facility]. She states she has been
there for a year and a half. She states she resdies in an apartment on the second floor with an elevator access. She states prior to admission she was independent with adls and uses a single point cane at home when she feels tired. She states she
has two single point canes at home, one for the home and one in the car. She states she has a prescription plan and uses [facility]. We reviewed a home visit by the Transitional Care Nurse. She is agreeable to a home visit. Medical work-in
progress. The discharge plan is to return home with with her spouse and a home visit by the Transitional Care Nurse when medically stable.
--- NOTE | 2025-04-09 09:57 | PN.CDI ---
CDI
- -
CDI:
Physician Documentation Request
Admit Date: 04/08/25 05:01
Dear Doctor Promise,
Patient is s/p mitral and tricuspid valve repair. Patient has noted history of atrial fibrillation.
CT surgery refers to the atrial fib as persistent and cardiology as permanent.
In an attempt to clarify potentially conflicting documentation, please clarify the type of atrial fibrillation
Persistent atrial fibrillation - episodes of continuous AF that last more than 7 days and do not self-terminate
Permanent atrial fibrillation - when a decision has been made to accept the presence of AF and there is no further attempt to restore or maintain sinus rhythm
Other - please specify
Use of terms such as suspected, likely, concern for, or probable (associated with a specific diagnosis that is being evaluated, monitored, or treated as if it exists) are acceptable and can be coded in the inpatient setting, when documented at the
time of discharge.
Thank you,
Caroline Damico RN, BSN
CDI Specialist
tiger text
Please use your independent medical judgment in providing your response.
--- NOTE | 2025-04-09 10:09 | W.PN.UPDATE ---
Update Note
Progress Note Update
CDI query: Persistent atrial fibrillation
[2025-04-09 10:20] LABS: Glucose - Point of Care 89 mg/dl (70-99)
--- NOTE | 2025-04-09 10:36 | W.PN.CD ---
Today's Communication / Plan
-
Doing well
Agree with care
Impression / Plan
-
Background: 79F with heart failure with midrange ejection fraction, NICM, pulmonary hypertension from HF, permanent atrial fibrillation, severe MR, and moderate TR presents for cardiac surgery
Primary price accuracy supervisor: Dr. Reveles
Severe mitral regurgitation status post radical mitral valve repair (cleft closure of P2 P3 and 32 mm band annuloplasty) & tricuspid regurgitation status post repair (30 mm band) on 04/08/[address] Virgen
- Left atrial maze and 40 mm NICOLE clip during surgery
- Pre-EDDIE LVEF 55%, post 55% without new RWMA, MV MG 3 mmHg & without TV insufficiency => postop portion of intraop EDDIE very good
Heart failure with midrange ejection fraction (LVEF 50%), chronic
- Follow volume status during recovery
- Resume GDMT when able
- Higher doses of spironolactone was associated with mild hyponatremia
Longstanding persistent atrial fibrillation ( i had considered permanent but really long standing persistent)
- AFib abaliton with her heart surgery, LA clip
- Currently being paced and in sinus rhythm
- Oral anticoagulation: Apixaban on hold
- [id number] score of 5 (HF, age 79, aortic plaque, female gender)
Subjective:
Sitting in chair, pain well controlled, neurologically intact
Physical Exam
Vital Signs/Labs
Vital Signs
Temp Pulse Resp BP Pulse Ox
98.3 F 76 22 103/50 96
04/09/25 10:00 04/09/25 10:15 04/09/25 10:15 04/09/25 10:00 04/09/25 10:15
04/08/25 04/09/25 04/10/25
06:59 06:59 06:59
Actual Weight 81.5 kg 82.9 kg
04/09/25 03:16
04/09/25 03:16
PT 19.3 Sec (11.4-14.6) H 04/08/25 10:58
INR 1.61 04/08/25 10:58
APTT 32.0 Sec (23.4-35.0) 04/08/25 10:58
Magnesium 2.7 mg/dl (1.6-2.3) H 04/09/25 03:16
Physical Exam
Constitutional: No acute distress
EENT: Anicteric
Cardiovascular: Rhythm & rate is regular and Rub absent
Respiratory: Respiratory effort normal and Lungs clear to auscul.
GI: Soft and Distention absent
Neuro/Psych: AO x 3
Data Reviewed
-
Date of Service: April 09, 2025
[2025-04-09 11:11] LABS: Glucose - Point of Care 91 mg/dl (70-99)
--- NOTE | 2025-04-09 12:00 | PTCARENOTE ---
Pt reassessed. Sitting up in the chair talking with family. Pt rates sternal pain 5/10, states this is tolerable at this time. SR with 1st degree AVB and frequent PACs. BP 107/78. POX 96% on RA. Surgical sites stable. CT output WNL. Hurtado draining
adequate amounts of clear yellow urine. CI 2.43 on Dobutamine at 2. Insulin d/c. No other acute changes from previous assessment.
--- NOTE | 2025-04-09 12:32 | W.PN.INTV ---
Today's Communication / Plan
Recommendations
Continue postoperative care
Follow chest tube output
Increase activity as able
Follow hemoglobin
Sign off
Assessment
-
79-year-old woman with past medical history noted. Electively admitted for mitral valve repair. Procedure underwent without complications on 04/08/2025.
Critical care consulted for postoperative management.
Status post radical mitral valve repair 04/08/2025-Dr. Virgen
Postoperative mechanical ventilation
Postoperative blood loss anemia
Conditions present prior admission:
History of mitral valve regurgitation-normal LVEF.
Heart failure with preserved ejection fraction
Permanent atrial fibrillation-on chronic anticoagulant
Hypertension
Assessment and plan:
Postoperative day 1
Extubated
Neurologically intact
On low rate supplemental oxygen
Continue analgesia with narcotics as needed-monitor respiratory status closely
Encourage incentive spirometry
Advance diet as tolerated
Aspiration precautions
Anemia noted-no evidence of acute bleeding-stable
Follow H&H serially
Hemodynamics -low-dose dobutamine. Wean off as able.
Adequate urinary output
Follow renal function.
Chest tube with no excessive drainage-no air leak.
Chest x-ray [id number]/24/2025: With no pneumothorax or fluid collections.
Remain nothing by mouth advance diet as tolerated head of the bed elevation
Glycemic control per protocol
DVT prophylaxis when safe from the surgical perspective.
No additional critical care needs.
Continue postoperative care
Sign off
Subjective Dataa
Subjective Data
Date of Service:
Date of Service: April 09, 2025
Chief Complaint: Test Engine Operator Follow Up (Status post mitral valve repair)
Subjective:
Extubated
On low rate supplemental oxygen
Postoperative pain is controlled
Review of Systems
General: Fever (n)
Cardiopulmonary: Dyspnea (none at rest)
GI: Abdominal Pain (n) and Nausea (n)
Objective Data
Data Reviewed
Vital Signs / I&O / Oxygen:
Vital Signs
Temp Pulse Resp BP Pulse Ox
98.7 F 76 25 107/78 97
04/09/25 12:00 04/09/25 12:00 04/09/25 12:00 04/09/25 12:00 04/09/25 12:00
Intake and Output
04/08/25 04/09/25 04/10/25
06:59 06:59 06:59
Intake Total 942.2 / 966.1 478.2 / 478.2
Output Total 1380 / 1415 420 / 420
Balance -437.8 / -448.9 58.2 / 58.2
SaO2 [SIMV] 99
SaO2 97
Nasal Cannula flow liters per 2
minute
Physical Exam
General: Comfortable
HEENT: Normocephalic
Cardiovascular: S1-S2
Respiratory: Non-Labored Respirations and Chest Tube (No airleak or excessive drainage.)
GI: Soft and Non Distended
Neurology: Awake
Skin: Warm
Labs/Micro/Reports
Lab Data
04/09/25 03:16
04/09/25 03:16
[2025-04-09] MEDS: FERRLECIT 110 MG IV (13:34)
--- NOTE | 2025-04-09 14:00 | PTCARENOTE ---
Pt assisted back to bed with 2 assist. Right pleural chest tube d/c per orders. pt tolerated, new dressing applied.
--- NOTE | 2025-04-09 16:30 | PTCARENOTE ---
Pt reassessed. EKG completed to confirm rhythm. SR 1st degree AVB with frequent PACs with rates 60s-70s. Cardiology notified, and orders to still give amio. CI 2.55. Hurtado tapered off to 15-20ml/hr. CT PA notified. All lines remain intact, denies
pain. CT output WNL.
[2025-04-09] MEDS: KCL 10 MEQ PO (16:40)
--- NOTE | 2025-04-09 19:27 | PTCARENOTE ---
Received pt from day shift RN, pt AOx4, complains of 4/10 MS incisional pain, improves w/PO Tylenol. Afebrile, tmax 98.9, NSR w/1st degree AVB and PACs HR 60-70s, BP on juanjose 100-120/50s, CVP 11-13, PAs 40-50s/20s, palpable pulses, +1 BLE edema.
Resp, lungs are clr, dim, 500 on IS, [address] -20 wall suction, dark red drainage, no airleak, no crepitus. Normoactive BS, kruse in place, draining clr, yellow urine. Skin intact, MS SCOTT w/surgical glue CDI, L upper back incision CDI. RIJ cordis
w/swan @50, PIV x1, L rad juanjose. Dobut infusing per order. See flowsheet for further documentation.
[2025-04-09] MEDS: REMOVE LIDOCAINE PATCH 1 PATCH REMOVE (20:05)
[2025-04-09 20:41] LABS: B.E. -1.9 mmol/L; HCO3 21.9 mmol/L (21-28); O2 Saturation % 98.8 % (94-98); PCO2 33 mmHg (32-35); PO2 80 mmHg (83-108); Potassium 4.2 mMOL/L (3.5-5.1)
[2025-04-09 21:02] LABS: Magnesium 2.3 mg/dl (1.6-2.3)
[2025-04-09] MEDS: PACERONE PO (22:40)
[2025-04-09] MEDS: LEVOPHED 250 IV (22:58)
--- NOTE | 2025-04-09 23:04 | PTCARENOTE ---
Pt reassessment unchanged ex PACs more frequent and episodes of hypotension, MAPs dropping less than 65. Pt asymptomatic. Levo gtt started to keep MAP >[address] PA and held 2200 amio dose. Hurtado care provided. See flowsheets for further
documentation.
[2025-04-10] VITALS (34 sets, daily range): BP systolic 64–150; BP diastolic 29–104; BMI 34.7
--- NOTE | 2025-04-10 03:02 | PTCARENOTE ---
Pt reassessment unchanged ex continues to have episodes of PACs with pauses and episodes of hypotension. Levo gtt infusing, titrating to keep MAP >65. UOP low, CT PA aware, no intervention ATT, will likely cont diuresis in am.
--- NOTE | 2025-04-10 04:07 | W.PN.CT ---
Today's Communication / Plan
-
-pod #2
-intermittent bradycardia low 40s with decrease in BP 90s/30s. ? if nonconducted PACs. Noted occasional a-paced beat (pw @ AAI 40). No significant pauses- will review with Cardiology
-CI 3.07, CO 5.53, SVR 969. MvO2 74.5. Drips: Dobut 2, briefly on Levo 2 to keep map >65 and now off
-CT outputs: 2 meds 90/225 in 12/24 hrs
-wean Dobutamine
-no significant response to 20 iv bid Lasix yesterday 04/09
-appears volume overloaded - consider 40 iv Lasix bid or Bumex today
-Cr stable - 0.8
-keep pw
-maintain Hurtado for critical I/O while on Dobut
-encourage IS, OOB
Assessment / Plan
-
-S/P Central sternotomy with aortic and bicaval cannulation/Radical mitral valve repair [cleft closure of P2 P3 and 32 mm band annuloplasty]/Simple tricuspid valve repair [30 mm band annuloplasty]/Left atrial maze [using RF and cryoablation] left
atrial appendage exclusion, by Dr. Virgen, 04/08/25, pod#2
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
-Functional tricuspid valve insufficiency
-Persistent A-fib on chronic anticoagulation with Eliquis
-Pulmonary hypertension
-Nonischemic cardiomyopathy
-LVEF 50-55%
-Hyponatremia
-Class 1 obesity (BMI 34)
-Uterine prolapse
-S/P tubal ligation
-S/P hysterectomy
-S/P Mohs x 2
-Acute postop blood loss anemia (stable without blood transfusion)
-Acute postop atelectasis
-Acute postop hypovolemia with subsequent hypervolemia
Discussed patient care with: Nursing and Care Team
Subjective
Procedure
S/P Central sternotomy with aortic and bicaval cannulation/Radical mitral valve repair [cleft closure of P2 P3 and 32 mm band annuloplasty]/Simple tricuspid valve repair [30 mm band annuloplasty]/Left atrial maze [using RF and cryoablation] left
atrial appendage exclusion, by Dr. Virgen, 04/08/25,
-
Date of Service: April 10, 2025
Objective Data
-
PT 19.3 Sec (11.4-14.6) H 04/08/25 10:58
INR 1.61 04/08/25 10:58
APTT 32.0 Sec (23.4-35.0) 04/08/25 10:58
Vital Signs
Vital Signs
Temp Pulse Resp BP Pulse Ox
97.7 F 68 22 98/42 100
04/10/25 03:00 04/10/25 03:00 04/10/25 03:00 04/10/25 03:00 04/10/25 03:00
CT Intake/Output/Weight
04/09/25 04/09/25 04/10/25
06:59 18:59 06:59
Intake Total 421.8 / 966.1 752.6 / 1044.2 291.6 / 1044.2
Output Total 410 / 1415 630 / 930 300 / 930
Balance 11.8 / -448.9 122.6 / 114.2 -8.4 / 114.2
SaO2: 100
Physical Exam
-
General: Awake and AOx3
Cardiovascular: Regular rate & rhythm (with extra beats- PACs), No Murmurs, No Rub and Other (+ JVD, + HJR)
Respiratory: Decreased Breath Sounds
Sternum: Stable
Incision: Clean, Dry and Intact
Extremities: Edema +1 (2+ DPs b/l)
Abdomen: soft, nontender, nondistended, + bowel sounds
Data Reviewed
-
Lab Results: Results Reviewed
Medications: Active Meds Reviewed
Chest X-Ray: Report Reviewed and Image Reviewed
ECG: Report Reviewed and Image Reviewed
[2025-04-10 04:15] LABS: B.E. -2.4 mmol/L; HCO3 22.5 mmol/L (21-28); O2 Saturation % 100.0 % (94-98); PCO2 38 mmHg (32-35); PO2 142 mmHg (83-108)
[2025-04-10 04:43] LABS: Hematocrit 28.1 % (37.0-47.0); Hemoglobin 9.5 g/dL (12.0-16.0); Mean Corp Hgb Conc. 33.8 g/dL (33.0-37.0); Mean Corpuscular Volume 94.0 fL (81.0-99.0); Platelet Count 192 10^3/uL (130-400); Red Cell Dist. Width 13.3 % (11.5-14.5)
[2025-04-10 05:07] LABS: Blood Urea Nitrogen 29 mg/dl (7-17); Calcium 8.9 mg/dl (8.4-10.2); Carbon Dioxide 22 mmol/L (22-30); Chloride 106 mmol/L (98-107); Estimated Creatinine Clearance 57 ml/min; Glucose 114 mg/dl (70-99); Magnesium 2.4 mg/dl (1.6-2.3); Potassium 4.1 mmol/L (3.5-5.1); Sodium 133 mmol/L (135-145); eGFR > 60.00
[2025-04-10] MEDS: TYLENOL 975 MG PO ×3 (05:34→22:08)
--- NOTE | 2025-04-10 06:55 | PTCARENOTE ---
OOB to the chair x1 assist, hypotensive after, asymptomatic, but needed levo to recover MAPs back to >65. Levo gtt now off.
--- NOTE | 2025-04-10 08:15 | PTCARENOTE ---
Resumed care of patient. Walking rounds completed with previous RN. Pt assessed while she was sitting up in the chair. Pt alert and oriented x4. Pt rates sternal pain 4/10-refuses additional pain meds at this time. Denies nausea and shortness of
breath. ALEXANDER with equal strength throughout. SR with frequent PACs with rates in the 80s with intermittent 2nd degree type 2 heart block with rates in the 50s-60s. SBP 90s-110s when in SR with PACs, when HR in the 50s-60s, pt hypotensive in the
70s-80s. Heart tones audible. Epicardial AV wiresCI 2.86 on Dobutamine at 2. PA pressures 30s/10s. CVP 8. Bilateral radial and DP pulses palpable. Trace lower extremity and hand edema. POX 100% on 2L, titrated to RA, POX 100%. Lungs diminished in
the bases. Occasional productive moist cough with lucero sputum. Mediastinal chest tubes x2 y-sited to 1 atrium to -20cm suction draining serosanguineous fluid. No air leaks, tidaling, crepitus noted. IS encouraged-500mL achieved. Abdomen soft, round,
nontender. Hypoactive BS. Pt reports passing gas. Hurtado intact draining inadequate amounts of clear yellow urine. CT PA aware. Sternal incision approximated with skin glue, CONSULTING APPLICATION ENGINEER. CT dressing CDI. Right IJ cordis with swan floated to 50cm. Left radial
juanjose intact with appropriate waveform. All lines flushed, leveled and zeroed. Left wrist 20g PIV intact. See MAR for medication administration. See worklist for complete nursing assessment. Plan of care reviewed and patient in agreement.
--- NOTE | 2025-04-10 08:27 | W.PN.CD ---
Today's Communication / Plan
-
- Okay to continue metoprolol and amiodarone at this time.
- Dobutamine discontinued now
- Lasix 40 mg IV twice daily
- Incentive spirometry and ambulation as tolerated.
Impression / Plan
-
Background: 79F with heart failure with midrange ejection fraction, NICM, pulmonary hypertension from HF, permanent atrial fibrillation, severe MR, and moderate TR presents for cardiac surgery
Primary edge sawyer: Dr. Reveles
Pauses
- Sinus rhythm with PACs and nonconducted PACs with compensatory pauses noted.
- No significant pauses present at this time.
- Baseline bradycardia noted.
- On amiodarone 200 mg 3 times daily and metoprolol 12.5 mg twice a day
- Atrial ectopy has improved now.
Severe mitral regurgitation status post radical mitral valve repair (cleft closure of P2 P3 and 32 mm band annuloplasty) & tricuspid regurgitation status post repair (30 mm band) on 04/08/[address] Virgen
- Left atrial maze and 40 mm NICOLE clip during surgery
- Pre-EDDIE LVEF 55%, post 55% without new RWMA, MV MG 3 mmHg & without TV insufficiency => postop portion of intraop EDDIE very good
Heart failure with midrange ejection fraction (LVEF 50%), chronic
- Follow volume status during recovery
- Resume GDMT when able
- Higher doses of spironolactone was associated with mild hyponatremia
Longstanding persistent atrial fibrillation ( i had considered permanent but really long standing persistent)
- AFib abaliton with her heart surgery, LA clip
- Currently being paced and in sinus rhythm
- Oral anticoagulation: Apixaban on hold
- [id number] score of 5 (HF, age 79, aortic plaque, female gender)
Subjective:
Sitting in chair, pain well controlled, neurologically intact
Physical Exam
Vital Signs/Labs
Vital Signs
Temp Pulse Resp BP Pulse Ox
98.5 F 60 17 132/41 100
04/10/25 07:00 04/10/25 07:00 04/10/25 07:00 04/10/25 07:00 04/10/25 07:00
04/09/25 04/10/25 04/11/25
06:59 06:59 06:59
Actual Weight 82.9 kg 83.3 kg
04/10/25 03:56
04/10/25 03:56
PT 19.3 Sec (11.4-14.6) H 04/08/25 10:58
INR 1.61 04/08/25 10:58
APTT 32.0 Sec (23.4-35.0) 04/08/25 10:58
Magnesium 2.4 mg/dl (1.6-2.3) H 04/10/25 03:56
Physical Exam
Constitutional: No acute distress and Comfortable
EENT: Anicteric and Moist mucous membranes
Cardiovascular: Rhythm & rate is regular, Pedal edema is absent and JVD pressure is normal
Respiratory: Respiratory effort normal, Lungs clear to auscul. and Wheeze Absent
GI: Soft, Normal bowel sounds and Distention present
Neuro/Psych: Alert, Oriented and AO x 3
Data Reviewed
-
Date of Service: April 10, 2025
Medical Decision Making: Reviewed Test Results, Test Interpretation and Review of Case with other Provider
EKG: Tracing Personally Visualized and interpreted
Echo: Report Reviewed by me
X-Ray/CT/US/MRI/NUC/PET: Image Personally Visualized and interpreted
Labs: Labs Reviewed by me
Old Records: Reviewed
[2025-04-10] MEDS: NEURONTIN 100 MG PO ×3 (08:33→22:08)
[2025-04-10] MEDS: PROTONIX 40 MG PO (08:33)
[2025-04-10] MEDS: LIDOCAINE 4% PATCH 1 PATCH TOPICAL (08:33)
[2025-04-10] MEDS: SENOKOT 8.6 MG PO ×2 (08:33→20:14)
[2025-04-10] MEDS: LOW STRENGTH ASPIRIN 81 MG PO (08:33)
[2025-04-10] MEDS: BACTROBAN 2% OINTMENT 1 APPLIC NASAL ×2 (08:34→20:15)
[2025-04-10] MEDS: PACERONE PO (08:56)
[2025-04-10] MEDS: KCL 20 MEQ PO (11:29)
[2025-04-10] MEDS: LASIX 40 MG IV ×2 (11:29→20:49)
[2025-04-10] MEDS: DOBUTREX 250 IV (11:29)
[2025-04-10] MEDS: NSS 500 IV (11:29)
--- NOTE | 2025-04-10 12:00 | PTCARENOTE ---
Pt reassessed. Remains OOB in the chair. States pain is tolerable, refuses additional pain medication. 100% v-paced via epicardial v-wire, BP improved with v-pacing 123/59. POX 96% on RA. Surgical sites stable. CT output WNL. UO improved with lasix
administration. CI 2.33 on dobutamine at 1. No other acute changes.
[2025-04-10] MEDS: FERRLECIT 110 MG IV (13:07)
[2025-04-10] MEDS: PACERONE 200 MG PO ×2 (16:07→22:08)
--- NOTE | 2025-04-10 19:44 | PTCARENOTE ---
Received pt from day shift RN. Pt AOx4, MS incisional pain 06/24, improves w/scheduled PO Tylenol. Pt afebrile, tmax 98.9, Vpaced at 80, NSR at 85 intermittently, AV wires VVI 80/7.0/4.0, BP 100-120/40-50 on juanjose, PAs 40-50/20s, CVP 10-12, palpable
pulses, +1 BLE edema. Resp, on room air, lung sounds dim in the bases, 500 on the IS, Med CTs removed today, dressing CDI. Normoactive bowel sounds, no nausea, kruse in place, draining clr, yellow urine. MS SCOTT, approximated, CDI, L upper back, CDI.
RIJ cordis w/swan at 50, PIV x1, L rad juanjose.
[2025-04-10] MEDS: REMOVE LIDOCAINE PATCH 1 PATCH REMOVE (20:15)
[2025-04-10 21:23] LABS: Magnesium 2.2 mg/dl (1.6-2.3); Potassium 4.3 mmol/L (3.5-5.1)
--- NOTE | 2025-04-10 23:06 | PTCARENOTE ---
Pt reassessment unchanged. Cont to be vpaced @ 80 or NSR 85-90s. 40mg IV lasix given for low UOP, responding well. Lytes check, all WNL. Hurtado care provided.
[2025-04-11] VITALS (31 sets, daily range): BP systolic 75–144; BP diastolic 36–93; PULSE 80; O2SAT 97; BMI 34.9
[2025-04-11 02:30] LABS: Hematocrit 26.5 % (37.0-47.0); Hemoglobin 9.0 g/dL (12.0-16.0); Mean Corp Hgb Conc. 34.0 g/dL (33.0-37.0); Mean Corpuscular Volume 94.0 fL (81.0-99.0); Platelet Count 179 10^3/uL (130-400); Red Cell Dist. Width 13.3 % (11.5-14.5)
[2025-04-11 02:51] LABS: Blood Urea Nitrogen 32 mg/dl (7-17); Calcium 8.6 mg/dl (8.4-10.2); Carbon Dioxide 22 mmol/L (22-30); Chloride 104 mmol/L (98-107); Estimated Creatinine Clearance 58 ml/min; Glucose 105 mg/dl (70-99); Magnesium 2.2 mg/dl (1.6-2.3); Potassium 4.0 mmol/L (3.5-5.1); Sodium 133 mmol/L (135-145); eGFR > 60.00
--- NOTE | 2025-04-11 03:30 | PTCARENOTE ---
Pt reassessment unchanged, cont to be mostly v-paced @ 80. Episodes of hypotension, MAP 50s, requiring levo gtt, but able to wean back off. Morning labs sent, plan to get OOB to the chair this am.
--- NOTE | 2025-04-11 05:06 | W.PN.CT ---
Today's Communication / Plan
-
-pod #3
-v-paced @ 80 overnight. Check ECG in am without pacing- ? rate-controlled a-fib
-follow rhythm. Appreciate Cardiology input
-CI 2.57 , CO 4.62, SVR 1073. MvO2 70. Drips: Dobut 1, Levo 2 on and off
-diuresed with 40 iv bid Lasix on 04/10. UO 925/1550 in 12/24 hrs
-wean Dobutamine as tolerated
-Echo today
-holding BB while on Dobutamine, continue po Amio
-hx of persistent a-fib - on Eliquis and Toprol 100 qd preop
-keep pw
-maintain Hurtado for critical I/O while on Dobut
-encourage IS, OOB
-
Assessment / Plan
-
-S/P Central sternotomy with aortic and bicaval cannulation/Radical mitral valve repair [cleft closure of P2 P3 and 32 mm band annuloplasty]/Simple tricuspid valve repair [30 mm band annuloplasty]/Left atrial maze [using RF and cryoablation] left
atrial appendage exclusion, by Dr. Virgen, 04/08/25, pod#3
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
-Functional tricuspid valve insufficiency
-Persistent A-fib, on chronic anticoagulation with Eliquis
-Pulmonary hypertension
-Nonischemic cardiomyopathy
-LVEF 50-55%
-Hyponatremia
-Class 1 obesity (BMI 34)
-Uterine prolapse
-S/P tubal ligation
-S/P hysterectomy
-S/P Mohs x 2
-Acute postop blood loss anemia (stable without blood transfusion)
-Acute postop atelectasis
-Acute postop hypovolemia with subsequent hypervolemia
Discussed patient care with: Nursing and Care Team
Subjective
Procedure
S/P Central sternotomy with aortic and bicaval cannulation/Radical mitral valve repair [cleft closure of P2 P3 and 32 mm band annuloplasty]/Simple tricuspid valve repair [30 mm band annuloplasty]/Left atrial maze [using RF and cryoablation] left
atrial appendage exclusion, by Dr. Virgen, 04/08/25,
-
Date of Service: April 10, 2025
Objective Data
-
Lab Results
04/10/25 03:56
04/10/25 20:51
PT 19.3 Sec (11.4-14.6) H 04/08/25 10:58
INR 1.61 04/08/25 10:58
APTT 32.0 Sec (23.4-35.0) 04/08/25 10:58
Vital Signs
Vital Signs
Temp Pulse Resp BP Pulse Ox
99 F 80 19 131/57 95
04/10/25 22:00 04/10/25 22:00 04/10/25 22:00 04/10/25 22:00 04/10/25 22:00
CT Intake/Output/Weight
04/10/25 04/10/25 04/11/25
06:59 18:59 06:59
Intake Total 403.8 / 1178.8 828.0 / 942.8 114.8 / 942.8
Output Total 380 / 1045 710 / 1260 550 / 1260
Balance 23.8 / 133.8 118.0 / -317.2 -435.2 / -317.2
SaO2: 95
Physical Exam
-
General: Awake and AOx3
Cardiovascular: Regular rate & rhythm (with extra beats- PACs), No Murmurs, No Rub and Other (+ JVD, + HJR)
Respiratory: Decreased Breath Sounds
Sternum: Stable
Incision: Clean, Dry and Intact
Abdomen: soft, nontender, nondistended, + bowel sounds
Extremities: Edema +1 (2+ DPs b/l)
Data Reviewed
-
Lab Results: Results Reviewed
Medications: Active Meds Reviewed
Chest X-Ray: Report Reviewed and Image Reviewed
ECG: Report Reviewed and Image Reviewed
[2025-04-11] MEDS: TYLENOL 975 MG PO ×3 (05:50→21:04)
--- NOTE | 2025-04-11 06:41 | PTCARENOTE ---
Pt OOB to the chair x1 assist, no events. Levo off since 2am.
--- NOTE | 2025-04-11 07:00 | PTCARENOTE ---
report received from previous RN at change of shift. pt resting comfortably OOB in chair. AAOX3. pt reports mild sternal pain only with movement. 1 assist to stand. 100% V paced on telemetry heart rate 80. temporary pacer set VVI rate 80 ma 7. Right
radial arterial line, leveled and zeroed with appropriate waveforms. Right IJ cordis/swan at 50 cm, leveled and zeroed with appropriate waveforms. dobutamine infusing per orders. kruse draining clear yellow urine. tolerating diet no nausea noted.
surgical sites CDI. pt updated on plan of care. see worklist for full nursing assessment and interventions.
[2025-04-11] MEDS: KCL 40 MEQ PO (08:16)
[2025-04-11] MEDS: SENOKOT 8.6 MG PO ×2 (08:16→19:46)
[2025-04-11] MEDS: NEURONTIN 100 MG PO ×3 (08:16→21:04)
[2025-04-11] MEDS: LOW STRENGTH ASPIRIN 81 MG PO (08:16)
[2025-04-11] MEDS: PROTONIX 40 MG PO (08:16)
[2025-04-11] MEDS: LASIX 40 MG IV (08:17)
[2025-04-11] MEDS: LIDOCAINE 4% PATCH 1 PATCH TOPICAL (08:17)
[2025-04-11] MEDS: BACTROBAN 2% OINTMENT 1 APPLIC NASAL ×2 (08:18→19:46)
[2025-04-11] MEDS: PACERONE PO (08:56)
--- NOTE | 2025-04-11 09:51 | CM ---
Reviewed chart. Met with and Mrs. Dasilva to review discharge plans. She states she is feeling better. She is waiting to hear if she will need a PPM. Prior to admission she resides with her spouse in the independent section at [facility]. She has been there for a year and a half. She resides in an apartment on the second floor with an elevator access. Prior to admission she was independent with adls and uses a single point cane at home when she feels tired.
She has two single point canes at home, one for the home and one in the car. She has a prescription plan and uses [facility]. Her spouse states he will be home to assist in her care if needed. We reviewed a home visit by the Transitional Care
Nurse. She is agreeable to a home visit. Medical work-in progress. The discharge plan is to return home with with her spouse and a home visit by the Transitional Care Nurse when medically stable.
--- NOTE | 2025-04-11 10:57 | W.PN.CD ---
Today's Communication / Plan
-
Agree with holding All AV ana active meds
Pacing support
More time before comitting to permanent pacemaker
Impression / Plan
-
Background: 79F with heart failure with midrange ejection fraction, NICM, pulmonary hypertension from HF, permanent atrial fibrillation, severe MR, and moderate TR presents for cardiac surgery
Primary intake rn: Dr. Reveles
Pauses
- Now I see AV Wenckebach, at times V rates in 40s, sometimes 70s
- Hold all AV ana acitve meds
- Pacing support
Severe mitral regurgitation status post radical mitral valve repair (cleft closure of P2 P3 and 32 mm band annuloplasty) & tricuspid regurgitation status post repair (30 mm band) on 04/08/[address] Virgen
- Left atrial maze and 40 mm NICOLE clip during surgery
- Pre-EDDIE LVEF 55%, post 55% without new RWMA, MV MG 3 mmHg & without TV insufficiency => postop portion of intraop EDDIE very good
Heart failure with preserved ejection fraction (LVEF 50%), chronic
- Follow volume status during recovery
- Resume GDMT when able
- Higher doses of spironolactone was associated with mild hyponatremia
Longstanding persistent atrial fibrillation (I had considered permanent but really long standing persistent)
- AFib abaliton with her heart surgery, LA clip
- Currently being paced and in sinus rhythm
- Oral anticoagulation: Apixaban on hold
- [id number] score of 5 (HF, age 79, aortic plaque, female gender)
Subjective:
Sitting in chair, pain well controlled, neurologically intact
Physical Exam
Vital Signs/Labs
Vital Signs
Temp Pulse Resp BP Pulse Ox
98.4 F 80 18 127/61 97
04/11/25 09:00 04/11/25 10:00 04/11/25 10:00 04/11/25 10:00 04/11/25 10:00
04/10/25 04/11/25 04/12/25
06:59 06:59 06:59
Actual Weight 83.3 kg 83.7 kg
04/11/25 02:12
04/11/25 02:12
PT 19.3 Sec (11.4-14.6) H 04/08/25 10:58
INR 1.61 04/08/25 10:58
APTT 32.0 Sec (23.4-35.0) 04/08/25 10:58
Magnesium 2.2 mg/dl (1.6-2.3) 04/11/25 02:12
Physical Exam
Constitutional: No acute distress
EENT: Anicteric
Cardiovascular: Rhythm & rate is regular and Pedal edema is absent
Respiratory: Respiratory effort normal and Lungs clear to auscul.
GI: Soft and Distention absent
Neuro/Psych: Alert and Oriented
Data Reviewed
-
Date of Service: April 11, 2025
--- NOTE | 2025-04-11 12:00 | PTCARENOTE ---
pt ambulated in hallway with cardiac rehab. pt then assisted back to bed for echo. pt NPO for possible pacermaker this afternoon. pt remains 100% vpaced at 80. no further changes in assessment noted.
[2025-04-11] MEDS: FERRLECIT 110 MG IV (13:47)
--- NOTE | 2025-04-11 15:57 | PTCARENOTE ---
left radial arterial line and right IJ swan dced. pt tolerated well. kruse dced. pt assisted OOB to chair with 1 assist and rolling walker. no further changes in assessment noted.
[2025-04-11] MEDS: NSS IV (16:01)
[2025-04-11] MEDS: LASIX IV (17:28)
[2025-04-11] MEDS: ELIQUIS 5 MG PO (19:46)
[2025-04-11] MEDS: REMOVE LIDOCAINE PATCH 1 PATCH REMOVE (19:47)
--- NOTE | 2025-04-11 19:51 | PTCARENOTE ---
Received pt from day shift RN. Pt Aox4, no complaints of pain, Vpaced at 80 via AV wires VVI 80/10/2, swan removed today, palpable pulses, +1 BLE edema. Resp on RA, spo2 95%, lungs clr, dim in the bases. Normoactive bowel sounds, kruse removed at
3p, DTV by 9pm. MS approximated, CDI, L upper back incision CDI. RIJ cordis, PIV x1. juanjose removed on . See flowsheet for further documentation.
--- NOTE | 2025-04-11 23:03 | PTCARENOTE ---
Pt reassessment unchanged. Ambulated to the bathroom to attempt to void and unable to go. Bladder scan at 2200, 11cc, CT PA made aware. Cont to be Vpaced @ 80. BP 100-130/50-[address] dressing changed.
[2025-04-12] VITALS (17 sets, daily range): BP systolic 99–155; BP diastolic 53–93; PULSE 81; O2SAT 93–97; BMI 35.2
--- NOTE | 2025-04-12 03:12 | W.PN.CT ---
Today's Communication / Plan
-
-pod #4
-no issues overnight, no complaints, ambulates
-no drips, Dobut is off
-holding BB and Amio for slow a-fib with intermittent hypotension
-monitor rhythm. Appreciate Cardiology input.
-Eliquis restarted per Dr. Reveles with last dose on Monday, in case requires pacer implant. Ordered NPO for Monday, just in case.
-s/p Echo 04/11:
1. Low normal left ventricular systolic function with no regional wall motion abnormalities. LVEF 51%.
2. Mildly decreased RV function.
3. S/p mitral valve repair. Peak/mean gradient 13/4 mmHg. Trace MR.
4. S/p tricuspid valve repair. Peak/mean 11/5 mmHg. Trace TR.
5. Top normal pulmonary artery systolic pressure (37 mmHg).
6. No significant change from intraoperative EDDIE 04/08/2025 at which time mean mitral gradient was 3 mmHg and mean tricuspid gradient was 1 mmHg. Increased gradients on today's echocardiogram are most likely due to expected hemodynamic changes
after surgery.
Assessment / Plan
-
-S/P Central sternotomy with aortic and bicaval cannulation/Radical mitral valve repair [cleft closure of P2 P3 and 32 mm band annuloplasty]/Simple tricuspid valve repair [30 mm band annuloplasty]/Left atrial maze [using RF and cryoablation] left
atrial appendage exclusion, by Dr. Virgen, 04/08/25, pod#4
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
-Functional tricuspid valve insufficiency
-Persistent A-fib, on chronic anticoagulation with Eliquis
-Pulmonary hypertension
-Nonischemic cardiomyopathy
-LVEF 50-55%
-Hyponatremia
-Class 1 obesity (BMI 34)
-Uterine prolapse
-S/P tubal ligation
-S/P hysterectomy
-S/P Mohs x 2
-Acute postop blood loss anemia (stable without blood transfusion)
-Acute postop atelectasis
-Acute postop hypovolemia with subsequent hypervolemia
-Hypotension with slow a-fib
Discussed patient care with: Nursing and Care Team
Subjective
Procedure
S/P Central sternotomy with aortic and bicaval cannulation/Radical mitral valve repair [cleft closure of P2 P3 and 32 mm band annuloplasty]/Simple tricuspid valve repair [30 mm band annuloplasty]/Left atrial maze [using RF and cryoablation] left
atrial appendage exclusion, by Dr. Virgen, 04/08/25,
-
Date of Service: April 12, 2025
Objective Data
-
PT 19.3 Sec (11.4-14.6) H 04/08/25 10:58
INR 1.61 04/08/25 10:58
APTT 32.0 Sec (23.4-35.0) 04/08/25 10:58
Vital Signs
Vital Signs
Temp Pulse Resp BP Pulse Ox
98.2 F 80 18 132/93 92
04/11/25 23:00 04/12/25 03:00 04/12/25 03:00 04/12/25 03:00 04/12/25 03:00
CT Intake/Output/Weight
04/11/25 04/11/25 04/12/25
06:59 18:59 06:59
Intake Total 701.9 / 1551.1 721.2 / 801.2 80 / 801.2
Output Total 980 / 1705 1290 / 1290
Balance -278.1 / -153.9 -568.8 / -488.8 80 / -488.8
SaO2: 92
Physical Exam
-
General: Awake and AOx3
Cardiovascular: Regular rate & rhythm (v-paced @ 80), No Murmurs and No Rub
Respiratory: Decreased Breath Sounds
Sternum: Stable
Incision: Clean, Dry and Intact
Extremities: Edema +1
Abdomen: soft, nondistended, nontender
Data Reviewed
-
Lab Results: Results Reviewed
Medications: Active Meds Reviewed
Chest X-Ray: Report Reviewed and Image Reviewed
ECG: Report Reviewed and Image Reviewed
--- NOTE | 2025-04-12 03:18 | PTCARENOTE ---
Pt reassessment unchanged. Remains vpaced @80, BP 110-130/50-70.
--- NOTE | 2025-04-12 04:26 | PTCARENOTE ---
Bladder scan 117, has not voided post krsue removal, CT PA aware, no intervention ATT.
[2025-04-12 04:33] LABS: Hematocrit 25.4 % (37.0-47.0); Hemoglobin 8.6 g/dL (12.0-16.0); Mean Corp Hgb Conc. 33.9 g/dL (33.0-37.0); Mean Corpuscular Volume 95.5 fL (81.0-99.0); Platelet Count 191 10^3/uL (130-400); Red Cell Dist. Width 13.5 % (11.5-14.5)
[2025-04-12 04:58] LABS: Blood Urea Nitrogen 26 mg/dl (7-17); Calcium 8.9 mg/dl (8.4-10.2); Carbon Dioxide 24 mmol/L (22-30); Chloride 103 mmol/L (98-107); Estimated Creatinine Clearance 77 ml/min; Glucose 92 mg/dl (70-99); Magnesium 2.3 mg/dl (1.6-2.3); Potassium 4.4 mmol/L (3.5-5.1); Sodium 132 mmol/L (135-145); eGFR > 60.00
--- NOTE | 2025-04-12 06:48 | PTCARENOTE ---
Pt OOB to the chair x1 assist, spo2 after getting up 88%, put pt on 2L NC, spo2 now 97%.
[2025-04-12] MEDS: TYLENOL 975 MG PO ×3 (07:12→21:45)
--- NOTE | 2025-04-12 07:23 | PTCARENOTE ---
Received pt from shift stacker RN; 100% V-paced on monitor and VSS; Epicardial A/V wires in places and set to VVI 80/10/0.2; RIJ Cordis and PIV x1 patent; Lungs diminished; IS to 750; positive bowel sounds; pt DTV bladder scanned pt for 264mls;
palpable pulses throughout; +1 lower extremity edema noted; all surgical sites C/D/I; see nursing documentation for further details.
[2025-04-12] MEDS: NEURONTIN 100 MG PO ×3 (08:13→21:45)
[2025-04-12] MEDS: PROTONIX 40 MG PO (08:13)
[2025-04-12] MEDS: LOW STRENGTH ASPIRIN 81 MG PO (08:13)
[2025-04-12] MEDS: ELIQUIS 5 MG PO ×2 (08:14→19:51)
[2025-04-12] MEDS: BACTROBAN 2% OINTMENT 1 APPLIC NASAL (08:14)
[2025-04-12] MEDS: LIDOCAINE 4% PATCH TOPICAL (08:14)
[2025-04-12] MEDS: SENOKOT 8.6 MG PO (08:14)
[2025-04-12] MEDS: LASIX 20 MG IV ×2 (09:11→15:17)
--- NOTE | 2025-04-12 12:13 | PTCARENOTE ---
Assessment unchanged; V paced on monitor and VSS; family at bedside and pt resting comfortably in chair.
[2025-04-12] MEDS: NSS IV (12:18)
--- NOTE | 2025-04-12 15:21 | PTCARENOTE ---
V-paced on monitor and VSS; assessment unchanged; pt ambulating hallways with RN; pt resting comfortably in chair with family at bedside.
[2025-04-12] MEDS: REMOVE LIDOCAINE PATCH REMOVE (19:49)
[2025-04-12] MEDS: SENOKOT PO (19:51)
[2025-04-12] MEDS: FLEXBUMIN 50 IV (19:51)
--- NOTE | 2025-04-12 20:53 | PTCARENOTE ---
received pt from previous rn. Pt OOB in chair at time of assessment. Pt AAOx4, VSS, 100% V paced per tele monitor. Epicardial wires set to 80/10/2. + pulses. pox 94% on RA. lungs diminished throughout. IS 750. coughing and deep breathing encouraged.
+bs. Pt voiding in bathroom spontaneously. all surgical sites intact. PIV x1 intact. plan of care discussed and questions encouraged. call shaver within reach. See worklist for full nursing assessment and nursing interventions.
--- NOTE | 2025-04-13 00:25 | PTCARENOTE ---
Pt reassessed. VSS. 100% v paced @ 80. assessment remains unchanged.
[2025-04-13] MEDS: FLEXBUMIN 50 IV ×2 (03:11→11:59)
[2025-04-13 04:16] VITALS: BP 128/56
--- NOTE | 2025-04-13 04:27 | PTCARENOTE ---
Pt reassessed. VSS. 100% V paced. AM labs obtained. assessment remains unchanged
[2025-04-13 05:03] LABS: Hematocrit 25.0 % (37.0-47.0); Hemoglobin 8.4 g/dL (12.0-16.0); Mean Corp Hgb Conc. 33.6 g/dL (33.0-37.0); Mean Corpuscular Volume 96.9 fL (81.0-99.0); Platelet Count 206 10^3/uL (130-400); Red Cell Dist. Width 13.2 % (11.5-14.5)
--- NOTE | 2025-04-13 05:08 | W.PN.CT ---
Addendum entered and electronically signed by Leslye Sutton MD 04/13/25 11:22:
I have seen and evaluated the patient, agree with documentation below.
Looks like her HR is picking up and she is self pacing above the pacing wires at times but this is inconsistent. Will try to capture a 12 lead of her internal rhythm, I still think there is a block. Will have her prepped for possible PPM tomorrow.
Original Note:
Today's Communication / Plan
-
-pod #5
-no issues overnight. Continued to be V-paced at 80.
-holding BB and Amio for slow a-fib with intermittent hypotension, responding to albumin + diuresis, UOP 500/1150 in 12/24 hrs
-monitor rhythm. Appreciate Cardiology input. Am EKG with pacer held showing continued high grade AV block
-Eliquis restarted per Dr. Reveles with last dose on Monday, in case requires pacer implant. Ordered NPO for Monday, just in case.
Assessment / Plan
-
-S/P Central sternotomy with aortic and bicaval cannulation/Radical mitral valve repair [cleft closure of P2 P3 and 32 mm band annuloplasty]/Simple tricuspid valve repair [30 mm band annuloplasty]/Left atrial maze [using RF and cryoablation] left
atrial appendage exclusion, by Dr. Virgen, 04/08/25, pod#5
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
-Functional tricuspid valve insufficiency
-Persistent A-fib, on chronic anticoagulation with Eliquis
-Pulmonary hypertension
-Nonischemic cardiomyopathy
-LVEF 50-55%
-Hyponatremia
-Class 1 obesity (BMI 34)
-Uterine prolapse
-S/P tubal ligation
-S/P hysterectomy
-S/P Mohs x 2
-Acute postop blood loss anemia (stable without blood transfusion)
-Acute postop atelectasis
-Acute postop hypovolemia with subsequent hypervolemia
-Hypotension with slow a-fib
Subjective
Procedure
S/P Central sternotomy with aortic and bicaval cannulation/Radical mitral valve repair [cleft closure of P2 P3 and 32 mm band annuloplasty]/Simple tricuspid valve repair [30 mm band annuloplasty]/Left atrial maze [using RF and cryoablation] left
atrial appendage exclusion, by Dr. Virgen, 04/08/25,
-
Date of Service: April 13, 2025
Objective Data
-
Lab Results
04/13/25 04:21
PT 19.3 Sec (11.4-14.6) H 04/08/25 10:58
INR 1.61 04/08/25 10:58
APTT 32.0 Sec (23.4-35.0) 04/08/25 10:58
Vital Signs
Vital Signs
Temp Pulse Resp BP Pulse Ox
98.2 F 80 20 128/56 93
04/13/25 04:00 04/13/25 04:16 04/13/25 04:00 04/13/25 04:16 04/13/25 04:00
CT Intake/Output/Weight
04/12/25 04/12/25 04/13/25
06:59 18:59 06:59
Intake Total 110 / 831.2 100 / 100
Output Total 650 / 1150 500 / 1150
Balance 110 / -458.8 -650 / -1050 -400 / -1050
SaO2: 93
Physical Exam
-
General: Awake and Oriented
Cardiovascular: Regular rate & rhythm, No Murmurs and No Rub
Respiratory: Clear and Equal
Sternum: Stable
Incision: Clean, Dry and Intact
Extremities: No Edema and No Erythema
Data Reviewed
-
Lab Results: Results Reviewed
Medications: Active Meds Reviewed
Chest X-Ray: Report Reviewed
ECG: Report Reviewed
[2025-04-13 05:12] LABS: Blood Urea Nitrogen 25 mg/dl (7-17); Calcium 9.2 mg/dl (8.4-10.2); Carbon Dioxide 26 mmol/L (22-30); Chloride 101 mmol/L (98-107); Estimated Creatinine Clearance 77 ml/min; Glucose 94 mg/dl (70-99); Magnesium 2.2 mg/dl (1.6-2.3); Potassium 4.1 mmol/L (3.5-5.1); Sodium 132 mmol/L (135-145); eGFR > 60.00
[2025-04-13 06:00] VITALS: BMI 35.2
[2025-04-13 07:23] VITALS: BP 125/64
[2025-04-13] MEDS: TYLENOL 975 MG PO ×3 (08:00→21:20)
[2025-04-13] MEDS: PROTONIX 40 MG PO (09:59)
[2025-04-13] MEDS: MUCINEX 600 MG PO ×2 (09:59→21:20)
[2025-04-13] MEDS: ELIQUIS 5 MG PO (10:00)
[2025-04-13] MEDS: SENOKOT 8.6 MG PO ×2 (10:00→21:20)
[2025-04-13] MEDS: NEURONTIN 100 MG PO ×3 (10:00→21:20)
[2025-04-13] MEDS: LIDOCAINE 4% PATCH TOPICAL (10:01)
[2025-04-13] MEDS: LOW STRENGTH ASPIRIN 81 MG PO (10:01)
[2025-04-13 11:08] VITALS: BP 114/52
[2025-04-13] MEDS: NSS IV (11:27)
[2025-04-13] MEDS: LASIX 40 MG IV (12:25)
[2025-04-13] MEDS: LASIX IV (15:09)
[2025-04-13 18:28] VITALS: BP 136/66
[2025-04-13] MEDS: REMOVE LIDOCAINE PATCH REMOVE (19:41)
[2025-04-13 19:45] VITALS: BP 124/71
--- NOTE | 2025-04-13 20:35 | PTCARENOTE ---
received pt from previous rn. Pt OOB in chair at time of assessment. Pt AAOx4, VSS, 100% V paced per tele monitor. Epicardial wires set to 80/10/2. + pulses. pox 95% on RA. lungs diminished throughout. IS 750. coughing and deep breathing encouraged.
+bs. Pt voiding in bathroom spontaneously. all surgical sites intact. PIV x1 intact. plan of care discussed and questions encouraged. call shaver within reach. See worklist for full nursing assessment and nursing interventions
[2025-04-13 23:21] VITALS: BP 134/67
[2025-04-14] VITALS (16 sets, daily range): BP systolic 124–164; BP diastolic 51–78; PULSE 71–73; O2SAT 94; BMI 35.1
--- NOTE | 2025-04-14 00:36 | PTCARENOTE ---
Pt reassessed. 100% v paced. VSS. pt ambulating in room with walker. assessment remains unchanged
--- NOTE | 2025-04-14 00:43 | PTCARENOTE ---
Pt reassessed. VSS. 100% v paced @ 80 per tele monitor. pt ambulating in room with rolling walker. NPO at midnight. otherwise assessment remains unchanged
--- NOTE | 2025-04-14 03:33 | PTCARENOTE ---
AM labs sent. VSS. 100% V paced @ 80. assessment unchanged
[2025-04-14 03:55] LABS: Hematocrit 25.3 % (37.0-47.0); Hemoglobin 8.5 g/dL (12.0-16.0); Mean Corp Hgb Conc. 33.6 g/dL (33.0-37.0); Mean Corpuscular Volume 96.9 fL (81.0-99.0); Platelet Count 241 10^3/uL (130-400); Red Cell Dist. Width 13.3 % (11.5-14.5)
[2025-04-14 04:17] LABS: Blood Urea Nitrogen 24 mg/dl (7-17); Calcium 9.5 mg/dl (8.4-10.2); Carbon Dioxide 27 mmol/L (22-30); Chloride 101 mmol/L (98-107); Estimated Creatinine Clearance 58 ml/min; Glucose 97 mg/dl (70-99); Magnesium 2.2 mg/dl (1.6-2.3); Potassium 4.1 mmol/L (3.5-5.1); Sodium 132 mmol/L (135-145); eGFR > 60.00
--- NOTE | 2025-04-14 05:20 | W.PN.CT ---
Today's Communication / Plan
-
-pod #6
-no issues overnight. Continued to be V-paced at 80. sensing not appropriate when rate < 80 with current wires
-holding BB and Amio for slow a-fib with intermittent hypotension, still volume responsive
-monitor rhythm. Appreciate Cardiology input. Am EKG with pacer held showing continued high grade AV block
-Eliquis restarted per Dr. Reveles with last dose on Monday, in case requires pacer implant. Ordered NPO for Monday, just in case.
-continue asa, furosemide, APAP, PPI, gabapentin, lidocaine patch
-OOB/IS
Assessment / Plan
-
-S/P Central sternotomy with aortic and bicaval cannulation/Radical mitral valve repair [cleft closure of P2 P3 and 32 mm band annuloplasty]/Simple tricuspid valve repair [30 mm band annuloplasty]/Left atrial maze [using RF and cryoablation] left
atrial appendage exclusion, by Dr. Virgen, 04/08/25, pod#6
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
-Functional tricuspid valve insufficiency
-Persistent A-fib, on chronic anticoagulation with Eliquis
-Pulmonary hypertension
-Nonischemic cardiomyopathy
-LVEF 50-55%
-Hyponatremia
-Class 1 obesity (BMI 34)
-Uterine prolapse
-S/P tubal ligation
-S/P hysterectomy
-S/P Mohs x 2
-Acute postop blood loss anemia (stable without blood transfusion)
-Acute postop atelectasis
-Acute postop hypovolemia with subsequent hypervolemia
-Hypotension with slow a-fib
Subjective
Procedure
S/P Central sternotomy with aortic and bicaval cannulation/Radical mitral valve repair [cleft closure of P2 P3 and 32 mm band annuloplasty]/Simple tricuspid valve repair [30 mm band annuloplasty]/Left atrial maze [using RF and cryoablation] left
atrial appendage exclusion, by Dr. Virgen, 04/08/25,
-
Date of Service: April 14, 2025
Objective Data
-
Lab Results
04/14/25 03:27
04/14/25 03:27
PT 19.3 Sec (11.4-14.6) H 04/08/25 10:58
INR 1.61 04/08/25 10:58
APTT 32.0 Sec (23.4-35.0) 04/08/25 10:58
Vital Signs
Vital Signs
Temp Pulse Resp BP Pulse Ox
98 F 80 24 132/64 91
04/14/25 03:32 04/14/25 03:30 04/14/25 03:32 04/14/25 03:20 04/14/25 03:32
CT Intake/Output/Weight
04/13/25 04/13/25 04/14/25
06:59 18:59 06:59
Intake Total 100 / 100 10 / 10
Output Total 500 / 1150 300 / 300
Balance -400 / -1050 10 / -290 -300 / -290
SaO2: 91
Physical Exam
-
General: Awake, Oriented and AOx3
Cardiovascular: Regular rate & rhythm
Respiratory: Clear
Sternum: Stable
Incision: Clean, Dry and Intact
Extremities: No Edema and No Erythema
Data Reviewed
-
Lab Results: Results Reviewed
Medications: Active Meds Reviewed
Chest X-Ray: Report Reviewed
ECG: Report Reviewed
[2025-04-14] MEDS: TYLENOL PO ×2 (06:37→14:41)
--- NOTE | 2025-04-14 08:10 | W.PN.CD ---
Today's Communication / Plan
-
- PPM today
Impression / Plan
-
Background: 79F with heart failure with midrange ejection fraction, NICM, pulmonary hypertension from HF, long standing persistent atrial fibrillation, severe MR, and moderate TR presents for cardiac surgery s/p Central sternotomy with aortic and
bicaval cannulation/Radical mitral valve repair [cleft closure of P2 P3 and 32 mm band annuloplasty]/Simple tricuspid valve repair [30 mm band annuloplasty]/Left atrial maze [using RF and cryoablation] left atrial appendage exclusion, by Dr. Virgen,
04/08/25
Primary log deck tender: Dr. Reveles
Pauses
- The pacer rate is down to 60 bpm
- Now in AF - still slow conduction noted and require intermittent pacing
- Holding all AV ana active meds
- Pacing support - with continued need for pacing will place permanent PPM today.
Severe mitral regurgitation status post radical mitral valve repair (cleft closure of P2 P3 and 32 mm band annuloplasty) & tricuspid regurgitation status post repair (30 mm band) on 04/08/[address] Virgen
- Left atrial maze and 40 mm NICOLE clip during surgery
- Pre-EDDIE LVEF 55%, post 55% without new RWMA, MV MG 3 mmHg & without TV insufficiency => postop portion of intraop EDDIE very good
Heart failure with preserved ejection fraction (LVEF 50%), chronic
- Follow volume status during recovery
- Resume GDMT when able
- Higher doses of spironolactone was associated with mild hyponatremia
Longstanding persistent atrial fibrillation
- s/p Maze with RF and cryoblation
- s/p NICOLE clip
- Currently being paced - gone into AF with bradycardia.
- Oral anticoagulation: Apixaban-Hold this AM for PPM.
- [id number] score of 5 (HF, age 79, aortic plaque, female gender)
Subjective:
Sitting in chair, pain well controlled, neurologically intact
Physical Exam
Vital Signs/Labs
Vital Signs
Temp Pulse Resp BP Pulse Ox
98 F 80 24 132/64 91
04/14/25 03:32 04/14/25 03:30 04/14/25 03:32 04/14/25 03:20 04/14/25 05:23
04/13/25 04/14/25 04/15/25
06:59 06:59 06:59
Actual Weight 84.5 kg 84.2 kg
04/14/25 03:27
04/14/25 03:27
PT 19.3 Sec (11.4-14.6) H 04/08/25 10:58
INR 1.61 04/08/25 10:58
APTT 32.0 Sec (23.4-35.0) 04/08/25 10:58
Magnesium 2.2 mg/dl (1.6-2.3) 04/14/25 03:27
Physical Exam
Constitutional: No acute distress and Comfortable
EENT: Anicteric and Moist mucous membranes
Cardiovascular: Pedal edema is absent and Rhythm/rate is irregular
Respiratory: Respiratory effort normal and Lungs clear to auscul.
GI: Soft, Non tender and Normal bowel sounds
Neuro/Psych: Alert, Oriented and AO x 3
Other: Skin and Cardiac Device Site
Data Reviewed
-
Date of Service: April 14, 2025
Medical Decision Making: Reviewed Test Results, Test Interpretation and Review of Case with other Provider
EKG: Tracing Personally Visualized and interpreted
Echo: Report Reviewed by me
X-Ray/CT/US/MRI/NUC/PET: Image Personally Visualized and interpreted
Labs: Labs Reviewed by me
Old Records: Reviewed
Critical Care Time (in minutes): 32
[2025-04-14] MEDS: SENOKOT 8.6 MG PO ×2 (08:34→20:04)
[2025-04-14] MEDS: LOW STRENGTH ASPIRIN 81 MG PO (08:34)
[2025-04-14] MEDS: NEURONTIN 100 MG PO ×2 (08:34→22:14)
[2025-04-14] MEDS: PROTONIX 40 MG PO (08:35)
[2025-04-14] MEDS: MUCINEX 600 MG PO ×2 (08:35→20:04)
[2025-04-14] MEDS: LASIX 40 MG IV (08:35)
[2025-04-14] MEDS: LIDOCAINE 4% PATCH TOPICAL (09:06)
[2025-04-14] MEDS: NSS IV (09:07)
--- NOTE | 2025-04-14 09:22 | PTCARENOTE ---
assumed care of pt from previous shift RN, paced rhythm on tele, VSS, lungs diminished, coughing and deep breathing encouraged. +bs, tolerating PO intake, voids spontaneously. PIV flushed easily. plan of care reviewed and questions encouraged.
--- NOTE | 2025-04-14 10:45 | CM ---
Reviewed chart. Met with Mr. and Mrs.. Dasilva to review discharge plans. Reviewed recommendations of therapy of some level of inpatient rehab. We reviewed Acute Rehab. verses SNF/Rehab/ They reside at [facility] and would be
agreeable to going there. [facility] to make the referral. Sent referral. [facility] to make the referral. Left message. Sent referral to [facility] to review.
Prior to admission she resides with her spouse in the independent section at [facility]. She has been there for a year and a half. She resides in an apartment on the second floor with an elevator access. Prior to admission
she was independent with adls and uses a single point cane at home when she feels tired. She has two single point canes at home, one for the home and one in the car. Medical work-up in progress. The discharge plan is to go to some level of rehab.
[facility] if approved for admission and bed available.
--- NOTE | 2025-04-14 12:39 | PTCARENOTE ---
VSS, epicardial pacing wires w failure to capture at times. Pt remains asymptomatic. Dr. Dumont at bedside to do PPM consent.
--- NOTE | 2025-04-14 14:41 | PTCARENOTE ---
pt sent to [facility] for PPM
--- NOTE | 2025-04-14 15:57 | PTCARENOTE ---
Received pt s/p PPM, EKG completed.
--- NOTE | 2025-04-14 16:11 | ITS.CL.PACE ---
Toe Puncher - Pacemaker Implant
Pacemaker Implant
Procedure Report:
Left Bundle Branch pacing Permanent Pacemaker Placement:
Ms. Dasilva is a 79 years old woman with heart failure with midrange ejection fraction, NICM, pulmonary hypertension from HF, long standing persistent atrial fibrillation, severe MR, and moderate TR presents for cardiac surgery s/p Central sternotomy
with aortic and bicaval cannulation/Radical mitral valve repair and has been dependent on the epicardial wire for pacing and is recommended for conduction system pacemaker.
Indications:
Intermittent Complete AV block
Date of the Procedure: 04/14/2025
Pre-Operative Diagnosis: AV block
Post-Operative Diagnosis: AV block
Procedure Performed: Conduction system pacing for dual-chamber pacemaker implanted
Performing physician:
Oliverio Dumont MD
Assistants:
EP staff
Anesthesia:
See anesthesia records
Detailed Description of the Procedure:
The patient was identified using hospital identification and informed consent obtained for the procedure. The risks were explained to the patient and the family including, but not limited to: Bleeding, infection, arrhythmia, stroke,
vascular/cardiac/lung puncture, surgery, pacemaker dependency/device malfunction. All questions were answered.
Anesthesia service provided sedation as reported separately. Antibiotics administered IV for risk of bacterial colonization. After obtaining informed and written consent, the patient was brought to the electrophysiology laboratory.
The initial rhythm was sinus with epicardial paced rhythm.
A timeout was performed immediately before the procedure. The left chest was prepped from the nipple to the angle of the jaw with chlorhexidine, and draped following sterile technique in usual routine.
A surgical pause and time out was performed immediately prior to the procedure with review of her medical history, recent labs, allergies and medications with site of procedure identified and consent noted in the chart. Antibiotics pre operatively
given. All team members concurred.
Following infiltration with local anesthetic, the axillary vein was accessed under fluoro guidance using the micro-puncture apparatus. The guide wires were advanced to the inferior vena cava (IVC) under flouro guidance.
A subcutaneous pocket was created with blunt dissection and use of electrocautery. Hemostasis was excellent.
The guide wire was advanced to the RA and was advanced to the RV. The preformed curved long hemostatic peel away HIS sheath was advanced into the RV cavity. A left bundle pacing wire was advanced into the sheath to the tip with ventricular signals
noted with unipolar manner. The HIS location was identified under guidance of the flouroscopy and the pacing wire signals. The sheath with the pacing lead was moved deeper into the RV cavity on the septum at a more inferior and distal to the HIS
signals.
Once adequate signals were noted on the electrograms of the pacing lead in the sheath with W pattern signals on the RV septum, the lead was advanced and clockwise turns were done under fluoroscopic guidance. The septum was engaged and the lead was
paced intermittently after every 2-3 turns. There was sheath approximation confirmed on FRISIAN view and the pacing lead was advanced with clockwise turns into the septal location. The septum was successfully engaged. The lead was paced and septal
pacing was noted. The sheath was placed again to the septum and the lead was advanced 2-3 turns with pacing with each advancement. The ventricular capture was monitored throughout and the captures gradually changed from RV pacing to non-selective
pacing to LBB pacing with R wave on V1.
With RBBB pattern noted on the pacing lead, it was decided to accept the location as optimal location. The long guiding sheath was cut and removed from the RV without change in lead position, impedance, sensing, or capture.
The lead was sutured to the underlying pectoralis fascia with 2-0 Ti-Cron stitches. A purse string suture was deployed using the 2-0 Vicryl suture.
Then the right atrial lead was implanted. The RA lead was anchored in the right atrial appendage with engaging the active-fixation apparatus. There was excellent sensing, pacing, and impedance from the leads, with no diaphragmatic stimulation at 10
V output.�Bovie cautery, antibiotics, and fluoroscopy were used.
The leads were attached to the pulse generator in standard configuration with acceptable sensing and threshold parameters. The pocket was irrigated with antibiotic solution; the pocket was inspected with no active bleeding noted. The device and the
leads were placed in the pocket.
A Tyrx pouch was placed around the device and the leads.
A floseal (Thrombin 5000 IU) was deposited in the pocket.
The device was secured to the underlying fascia using 2-0 Ti-Cron suture.
Deep subcutaneous tissues were closed with 3 layers of 2-0V loc sutures; and the dermis was reopposed using a running 4-0 Biosyn subcuticular suture. Sponge counts / sharp counts were appropriate.
Procedure End:
The procedure was tolerated well. Aquacel bandaged was applied. A pressure dressing was applied.
Estimated Blood loss:
5 cc
Specimens Removed:
No cultures and no specimens were obtained. No intraoperative pathology was identified.
Urine output:
None
Packs / Drains/ Tubes:
None
Instrument / Sponge Count Correct:
Yes
Flouro time:
2.0min / 4.84 mGy
Complications of the Procedure:
None
Condition of Patient at Time of Transfer:
Hemodynamically stable with no neurological or vascular compromise.
Device information:�
Generator: Quick Hang; Model: W1DR01; Serial # [id number]�
Atrial Lead: Quick Hang; Model: 5076-52; Serial # [id number]
Measured data in the right atrium was sensing of 1.6 mV, impedance of 437 ohms and threshold of 0.75 V at 0.4ms�
LBB pacing lead: Medtronic; Model: 3830-69; Serial # [id number]
Measured data on the RV lead was sensing of 6.0 mV, impedance of 551 ohms and threshold of 1.0V at 0.4ms
PROGRAMMING PARAMETERS:�
Lang parameter settings were DDDR 60-130 �
Paced AV interval: 180ms
Sensed AV interval: 150 ms.
Rate Adaptive A-V Interval: off
Mode switch ON
Summary:
Successful implantation of MRI compatible LBB pacing dual chamber pacemaker.
Results/Recommendations:
-Please follow up CXR�
1. Please provide patient with adequate pain control�
2. Start Metoprolol for rhythm and rate control.
3. No Heparin. Ok to start Eliquis when acceptable
Instructions to be given to patient:�
- Please follow up with [facility] at [address] [place] [address] ([phone]) to get your wound checked in 2 weeks of your discharge. Then follow with
- Do not wet incision site until after it is evaluated at cardiology clinic. No baths or showers until then. Sponge baths / showers are OK but dab dry the dressing after it is wet.�
- Allow 'steri strips' to fall off on their own�
- Do not lift left elbow above shoulder, particularly with sudden jerking movements, for 1 month�
- Do not lift anything weighing more than 5 pounds with the left arm for 1 month�
- If you notice any fevers, shortness of breath, lightheadedness, chest pain, or worsening swelling in the wound site, please contact the arrhythmia clinic, contact your creative services director, or present to the hospital for evaluation.�
Oliverio Dumont MD
Electrophysiology
[2025-04-14] MEDS: NEURONTIN PO (17:26)
--- NOTE | 2025-04-14 17:57 | PTCARENOTE ---
post procedure CXR completed.
[2025-04-14] MEDS: REMOVE LIDOCAINE PATCH REMOVE (19:54)
--- NOTE | 2025-04-14 20:30 | PTCARENOTE ---
Patient received OOB in chair watching television. Patient A+A+Ox3. No neurological deficits noted. Patient assisted to bathroom with assist x1 and use of rolling walker. Voided 300 ml yellow urine. Patient washed face and brushed teeth.
Assisted to bed. Sternal precautions. No c/o headache, dizziness or lightheadedness. Mild SWIFT. O2 at 2L via NC. SpO2 96%. Chest tube dressing intact. Permanent Pacemaker - 100% V-Pacing - Left anterior chest wall pressure dressing intact -
Left arm immobilizer/sling intact. Heart rate 70-90's. Patient with no c/o chest pain, pressure or discomfort. Epicardial wires insulated. Abdomen soft, nontender. Normoactive bowel sounds. No BM. Positive flatus. Bilateral lower extremity
edema. Positive, palpable pulses. Patient with no c/o back or flank pain. Sternal incision intact - Open to air. Assessment as documented.
[2025-04-14] MEDS: TYLENOL 975 MG PO (22:14)
--- NOTE | 2025-04-15 | PTCARENOTE ---
Patient sleeping without difficulty. Assessment as documented.
--- NOTE | 2025-04-15 00:33 | W.PN.CT ---
Today's Communication / Plan
-
Plan:
-No issues overnight. Hemodynamically and neurologically intact
-Pt with postop intermittent AV Block, underwent Dual Chamber PPM placement yesterday 04/14
-Will need temporary PW cut today
-Will resume BB and Amiodarone
-Will resume Eliquis
-Monitor hyponatremia, will cont. diuresis and fluid restriction
-Encourage use of IS
-OOB into chair/Ambulate
-PT/OT recommend SNF placement
-Awaiting bed @ [facility]
Assessment / Plan
-
-S/P Central sternotomy with aortic and bicaval cannulation/Radical mitral valve repair [cleft closure of P2 P3 and 32 mm band annuloplasty]/Simple tricuspid valve repair [30 mm band annuloplasty]/Left atrial maze [using RF and cryoablation] left
atrial appendage exclusion, by Dr. Virgen, 04/08/25, pod#7
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
-Functional tricuspid valve insufficiency
-Persistent A-fib, on chronic anticoagulation with Eliquis
-Pulmonary hypertension
-Nonischemic cardiomyopathy
-LVEF 50-55%
-Hyponatremia
-Class 1 obesity (BMI 34)
-Uterine prolapse
-S/P tubal ligation
-S/P hysterectomy
-S/P Mohs x 2
-Acute postop blood loss anemia (stable without blood transfusion)
-Acute postop atelectasis
-Acute postop hypovolemia with subsequent hypervolemia
-Hypotension with slow a-fib
-Acute postop hyponatremia
-Acute postop intermittent AV Block S/P Dual chamber PPM placement, 04/14/25, by Dr. Dumont
Discussed patient care with: Cardiology, Nursing, Respiratory Therapy, Pharmacy and Care Team
Subjective
Procedure
S/P Central sternotomy with aortic and bicaval cannulation/Radical mitral valve repair [cleft closure of P2 P3 and 32 mm band annuloplasty]/Simple tricuspid valve repair [30 mm band annuloplasty]/Left atrial maze [using RF and cryoablation] left
atrial appendage exclusion, by Dr. Virgen, 04/08/25,
-
Date of Service: April 15, 2025
Pt c/o mild incisional pain, otherwise feels well
Objective Data
-
Lab Results
04/14/25 03:27
04/14/25 03:27
PT 19.3 Sec (11.4-14.6) H 04/08/25 10:58
INR 1.61 04/08/25 10:58
APTT 32.0 Sec (23.4-35.0) 04/08/25 10:58
Vital Signs
Vital Signs
Temp Pulse Resp BP Pulse Ox
98.7 F 89 16 142/76 95
04/14/25 22:15 04/14/25 22:15 04/14/25 22:15 04/14/25 22:15 04/14/25 22:15
CT Intake/Output/Weight
04/14/25 04/14/25 04/15/25
06:59 18:59 06:59
Intake Total 100 / 340 240 / 340
Output Total 300 / 300 500 / 500
Balance -300 / -290 100 / -160 -260 / -160
SaO2: 95 (RA)
Physical Exam
-
General: Awake, Oriented and AOx3
Cardiovascular: Regular rate & rhythm, No Murmurs, No Rub and No Gallop
Respiratory: Decreased Breath Sounds (at bases, otherwise clear)
Sternum: Stable
Incision: Clean, Dry, Intact and Dressing Intact
Extremities: Other (+trace edema)
Data Reviewed
-
Lab Results: Results Reviewed
Medications: Active Meds Reviewed
Chest X-Ray: Report Reviewed and Image Reviewed
ECG: Report Reviewed and Image Reviewed
--- NOTE | 2025-04-15 03:00 | PTCARENOTE ---
Patient sleeping without difficulty. Assessment/Interventions as documented.
[2025-04-15 04:50] VITALS: BP 131/75
[2025-04-15 04:51] VITALS: BP 131/75
[2025-04-15] MEDS: TYLENOL PO (05:00)
[2025-04-15 05:18] LABS: Hematocrit 25.5 % (37.0-47.0); Hemoglobin 8.6 g/dL (12.0-16.0); Mean Corp Hgb Conc. 33.7 g/dL (33.0-37.0); Mean Corpuscular Volume 97.3 fL (81.0-99.0); Platelet Count 257 10^3/uL (130-400); Red Cell Dist. Width 13.4 % (11.5-14.5)
[2025-04-15 05:45] LABS: Blood Urea Nitrogen 23 mg/dl (7-17); Calcium 9.4 mg/dl (8.4-10.2); Carbon Dioxide 26 mmol/L (22-30); Chloride 101 mmol/L (98-107); Estimated Creatinine Clearance 66 ml/min; Glucose 103 mg/dl (70-99); Magnesium 2.2 mg/dl (1.6-2.3); Potassium 4.9 mmol/L (3.5-5.1); Sodium 133 mmol/L (135-145); eGFR > 60.00
[2025-04-15 06:00] VITALS: BMI 35.0
[2025-04-15 07:45] VITALS: BP 133/50
--- NOTE | 2025-04-15 07:47 | PTCARENOTE ---
assumed care of pt from previous shift RN, V paced rhythm on tele, VSS, + peripheral pulses, trace edema noted. Lungs diminished, pox 93% on RA. +BS, tolerating PO intake. Voids spontaneously. Surgical sites stable. Pressure dressing maintained to
left CW PPM site. PIV flushes easily. Plan of care reviewed and questions encouraged.
[2025-04-15 09:08] VITALS: BP 133/50; PULSE 92
[2025-04-15] MEDS: PROTONIX 40 MG PO (09:18)
[2025-04-15] MEDS: MUCINEX 600 MG PO (09:18)
[2025-04-15] MEDS: TOPROL XL 25 MG PO ×2 (09:18→11:43)
[2025-04-15] MEDS: LASIX 40 MG IV (09:18)
[2025-04-15] MEDS: NEURONTIN 100 MG PO ×2 (09:18→14:30)
[2025-04-15] MEDS: LOW STRENGTH ASPIRIN 81 MG PO (09:18)
[2025-04-15] MEDS: SENOKOT 8.6 MG PO (09:18)
[2025-04-15] MEDS: PACERONE 200 MG PO ×2 (09:18→14:30)
[2025-04-15] MEDS: NSS IV (09:19)
[2025-04-15] MEDS: LIDOCAINE 4% PATCH TOPICAL (09:19)
[2025-04-15] MEDS: ELIQUIS 5 MG PO (10:01)
--- NOTE | 2025-04-15 10:23 | CM ---
Addendum entered by Pastora Huertas 04/15/25 11:22:
[facility] made wheelchair van arrangements for 4:30 p.m. Updated RN, and patient and family. Updated [facility] [place] Admission with transfer date and time.
Addendum entered by Pastora Huertas 04/15/25 10:35:
Received telephone call from [facility] [place] today. The report number is ([phone]) and fax number is ([phone]). [facility] would like a 2;00 p.m. pick-up if possible. Updated RN and patient and family. The discharge plan is to go to [facility] today if medically stable.
Original Note:
Reviewed chart. Telephone call to [facility]. Admissions to confirm ability to accept for admission today. Left message. Met with and Mrs. Dasilva to review discharge plans. They are agreeable to going to [facility]. SNF today if bed
available. Reviewed transportation option and out of pocket cost. They are agreeable to wheelchair van transportation.Will set up once bed is confirmed. Medical work-up in progress The discharge plan is to go to [facility]. SNF when
medically stable and bed available.
[2025-04-15 11:42] VITALS: BP 131/71
--- NOTE | 2025-04-15 12:03 | W.DCSUMMARY ---
Discharge Summary
Discharge Data
Date of Admission: 04/08/25
Date of Discharge: 04/15/25
Total time spent discharging patient (in min): 55
-
Pending Results: No
Hospital Course
Primary care physician:
Outpatient director project management:
Dr. Reveles
Inpatient consultants:
CBC, plaster caster
Procedures:
1. Radical mitral valve repair [cleft closure of P2 P3 and 32 mm band annuloplasty]/Simple tricuspid valve repair [30 mm band annuloplasty]/Left atrial maze [using RF and cryoablation] left atrial appendage exclusion, by Dr. Virgen, 04/08/25
2. Dual chamber PPM placement, 04/14/25, by Dr. Dumont
Primary Diagnosis:
1. 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
Secondary Diagnoses:
1. Functional tricuspid valve insufficiency
2. Post-op bradycardia
3. Persistent A-fib on chronic anticoagulation
4. Pulmonary hypertension
5. Nonischemic cardiomyopathy
HPI: 79-year-old female with known mitral valve insufficiency has been developing worsening shortness of breath while walking and doing housework. She has noticed this has been progressing over the last year. She presented electively on 04/08
for MV repair with Dr. Virgen.
Hospital course: Patient presented electively on 04/08 for a mitral valve and tricuspid repair with Dr. Virgen. Postoperatively she returned to the CVICU on dobutamine, Precedex, and Cardene infusion as needed to keep systolic blood pressure less
than 110. Patient was AAI paced in the 80s due to frequent PACs. Precedex was weaned off and patient was extubated by 1445. On 04/09 postoperative day 1, dobutamine was weaned to 2 and right pleural chest tube was removed. She was diuresed with
40 mg of IV Lasix and transitioned off her insulin infusion. On 04/10 postoperative day 2 patient was starting to have rhythm changes. She required frequent V pacing so epicardial wires remained in place. Patient's dobutamine was weaned down to 1
and mediastinal chest tubes were removed. She was diuresed with 40 mg of IV Lasix again. On 04/11 postoperative day 3, patient was weaned off dobutamine. She was A-fib in the 40s with blood pressure drops. Therefore after discussion with "Estelita"Abdirizak her outpatient director project management we decided we would continue to V-paced her in the 80s and watch over the weekend for possible permanent pacemaker placement. Over the weekend patient was diuresed however heart rate remained low with dropped beats
on 04/14 so she was taken on postop day 6 for a permanent pacemaker. The procedure went well and she was diuresed again with 40 mg of IV Lasix. On 04/15 postoperative day 7 patient was resumed on beta-blockers and amiodarone. She was also
restarted on her home dose of Eliquis. Her epicardial wires were cut at the level of the skin and she was deemed stable for discharge to the nursing home part of her independent living facility. She will be discharged home on a course of
diuretics with repeat labs in 1 week.
Home medication changes:
see below
Discharge Plan
-
Patient Disposition: Home (Routine Discharge)
Discharge Diagnosis/Procedures: Radical mitral valve repair [cleft closure of P2 P3 and 32 mm band annuloplasty]/Simple tricuspid valve repair [30 mm band annuloplasty]/Left atrial maze [using RF and cryoablation] left atrial appendage exclusion, by
Dr. Virgen, 04/08/25
Dual chamber PPM placement, 04/14/25, by Dr. Dumont
Condition: Good
Diet: Restrict fluids to 64 oz
Activity: No strenuous activity
Driving Restrictions: Not until seen by your Dr
Bathing Restrictions: OK to Shower
Blood Work: BMP in one week
Other Services: Cardiac Rehab
Specialty Instructions: Weigh Daily- Call MD for wt gain/loss 3 lbs overnight/5 lbs in 1 week
Activity Restrictions/Additional Instructions:
Please call to make appointments for Phase II Cardiac Rehab:
[facility]
[phone]
ACTIVITY:
-No strenuous activity: no heavy lifting, pushing, pulling anything over 15 pounds for one month
-continue to use stairs as tolerated
DRIVING RESTRICTIONS:
-No driving for one month or until approved by your surgeon
WOUND CARE:
-Shower daily. Use soap & water.
-No lotions, creams or powders on incision area.
DIET:
-continue a low fat/low cholesterol diet.
-IF you are diabetic, continue carb controlled diet.
CARDIAC REHAB:
-Please make appointment to start in 5-6 weeks with your local hospital program. (See Cardiac Rehabilitation Discharge Booklet).
SPECIALTY INSTRUCTIONS:
-Weigh yourself daily. Call your physician for any weight gain/loss of 3 lbs overnight or 5 lbs in one week.
-REPORT any clicking noise or uneven appearance of your sternum to your surgeon immediately.
-If you smoke, you are instructed to quit. The [place] smoking hotline phone number is [phone]
Referrals:
[facility] [Outside]
Shannan Celestin CRNP [Specified Professional Personl, Cardiology] - 05/26/25 10:00 am
Caroline Vu MD [Family Provider, Family Practice] - in four to six weeks
Referral Note: Please make an appointment in four to six weeks.
Kathy Remy CRNP [Specified Professional Personl, Cardiac Surgery] - 05/08/25 11:30 am
Additional Discharge Medication Instructions: Please note that your metoprolol dose has decreased. Do not increase with directed by a medical professional
Please take a 40mg oral dose of lasix when you get to [facility]; then continue 40mg BID for 3 days and then 40mg daily for 4 days.
Please take potassium supplements while on lasix
Prescriptions:
New
amiodarone [Pacerone] 200 mg Tablet
200 mg PO DAILY Qty: 30 1RF
aspirin 81 mg Tablet,Chewable
81 mg PO DAILY Qty: 0 0RF
pantoprazole 40 mg Tablet,Delayed Release (Dr/Ec)
40 mg PO DAILY Qty: 30 3RF
oxycodone 5 mg Tablet
2.5 mg PO Q4HPRN PRN (Reason: severe pain) Qty: 7 0RF
metoprolol succinate [Toprol XL] 50 mg tablet extended release 24 hr
50 mg PO DAILY Qty: 30 0RF
potassium chloride [K-Tab] 20 mEq tablet extended release
40 meq PO DAILY Qty: 14 0RF
Continued
acetaminophen [Tylenol] 325 mg Tablet
325 - 650 mg PO Q6H PRN (Reason: Pain)
calcium carbonate-vitamin D3 [Calcium 600 + D(3)] 600 mg-10 mcg (400 unit) Tablet
1 tab PO BID
PreserVision AREDS-2 250-90-40-1 mg Capsule
1 tab PO BID
Eliquis 5 MG tablet
5 mg PO BID
Changed
furosemide [Lasix] 40 mg tablet
40 mg PO BID Qty: 30 1RF
Discontinued
spironolactone 25 mg Tablet
12.5 mg PO DAILY
sacubitril-valsartan [Entresto] 97-103 mg Tablet
1 tab PO BID
metoprolol succinate 100 mg Tablet Extended Release 24 Hr
100 mg PO HS
Jardiance 10 mg Tablet
10 mg PO DAILY
Discharge Orders:
Discharge Patient (As Directed); Ordered 04/15/25
Ordered By: Rosalee Crespo
Care Plan Goals
Care Plan Goals:
Problem: Readiness for enhanced knowledge related to diagnosis and treatment plan
Goal: Understand your diagnosis and treatment plan needs, including medications if applicable.
Instructions: Know your diagnosis, underlying causes and treatment plan options, including medications if applicable. Consult with your health care team to learn about your diagnosis and treatment plan, including medications if applicable.
Discharge Date and Time
Print Language: ITALIAN
--- NOTE | 2025-04-15 12:40 | PTCARENOTE ---
Report given to Shi at [facility].
--- NOTE | 2025-04-15 12:55 | PTCARENOTE ---
pacing wires cut by CT JOSE
--- NOTE | 2025-04-15 13:23 | W.PN.CD ---
Today's Communication / Plan
-
- Restart Metoprolol and Eliquis today
- Stable for placement / discharge from cardiac stand point.
Impression / Plan
-
Background: 79F with heart failure with midrange ejection fraction, NICM, pulmonary hypertension from HF, long standing persistent atrial fibrillation, severe MR, and moderate TR presents for cardiac surgery s/p Central sternotomy with aortic and
bicaval cannulation/Radical mitral valve repair [cleft closure of P2 P3 and 32 mm band annuloplasty]/Simple tricuspid valve repair [30 mm band annuloplasty]/Left atrial maze [using RF and cryoablation] left atrial appendage exclusion, by Dr. Virgen,
04/08/25
Primary instructional systems specialist: Dr. Reveles
AV block
- s/p dual chamber PPM placed - conduction system MDT -04/14/25.
- Currently A sensed V paced rhythm.
- Metoprolol and Eliquis restarted.
Severe mitral regurgitation status post radical mitral valve repair (cleft closure of P2 P3 and 32 mm band annuloplasty) & tricuspid regurgitation status post repair (30 mm band) on 04/08/[address] Virgen
- Left atrial maze and 40 mm NICOLE clip during surgery
- Pre-EDDIE LVEF 55%, post 55% without new RWMA, MV MG 3 mmHg & without TV insufficiency => postop portion of intraop EDDIE very good
Heart failure with preserved ejection fraction (LVEF 50%), chronic
- Follow volume status during recovery
- Resume GDMT when able
- Higher doses of spironolactone was associated with mild hyponatremia
Longstanding persistent atrial fibrillation
- s/p Maze with RF and cryoblation
- s/p NICOLE clip
- Currently being paced - gone into AF with bradycardia.
- Oral anticoagulation: Apixaban-Hold this AM for PPM.
- [id number] score of 5 (HF, age 79, aortic plaque, female gender)
Subjective:
Sitting in chair, pain well controlled, neurologically intact.
The pressure dressing removed. No bleeding or hematoma
Physical Exam
Vital Signs/Labs
Vital Signs
Temp Pulse Resp BP Pulse Ox
98.2 F 76 16 131/71 93
04/15/25 11:42 04/15/25 12:00 04/15/25 11:42 04/15/25 11:42 04/15/25 11:42
04/14/25 04/15/25 04/16/25
06:59 06:59 06:59
Actual Weight 84.2 kg 83.9 kg
04/15/25 05:04
04/15/25 05:04
PT 19.3 Sec (11.4-14.6) H 04/08/25 10:58
INR 1.61 04/08/25 10:58
APTT 32.0 Sec (23.4-35.0) 04/08/25 10:58
Magnesium 2.2 mg/dl (1.6-2.3) 04/15/25 05:04
Physical Exam
Constitutional: No acute distress and Comfortable
EENT: Anicteric and Moist mucous membranes
Cardiovascular: Rhythm & rate is regular, Pedal edema is absent and JVD pressure is normal
Respiratory: Respiratory effort normal, Lungs clear to auscul. and Wheeze Absent
GI: Soft, Non tender and Normal bowel sounds
Neuro/Psych: Alert, Oriented and AO x 3
Other: Cardiac Device Site
Data Reviewed
-
Date of Service: April 15, 2025
Medical Decision Making: Reviewed Test Results, Test Interpretation and Review of Case with other Provider
EKG: Tracing Personally Visualized and interpreted
X-Ray/CT/US/MRI/NUC/PET: Image Personally Visualized and interpreted
Labs: Labs Reviewed by me
Old Records: Reviewed
Critical Care Time (in minutes): 32
[2025-04-15 14:28] VITALS: BP 138/72
[2025-04-15] MEDS: TYLENOL 975 MG PO (14:31)
--- NOTE | 2025-04-15 17:15 | PTCARENOTE ---
PIV removed, pt was released to transport crew for discharged to [place].
== END 2025-04-15 17:18 | DRG 317 ==
LOC: CVICU 05:01
PROVIDERS: Anesthesiology; Internal Medicine Cardiovascular Disease; Nurse Practitioner; Physician Assistant Medical; ADMITTING PHYSICIAN Thoracic Surgery (Cardiothoracic Vascular Surgery); CONSULT PHYSICIAN Internal Medicine Critical Care Medicine; FAMILY PHYSICIAN Family Medicine
PROC: 02580ZZ Destruction of Conduction Mechanism, Open Approach (ICD-10-PCS; 2025-04-08)
PROC: 02UG0JZ Supplement Mitral Valve with Synthetic Substitute, Open Approach (ICD-10-PCS; 2025-04-08)
PROC: 02UJ0JZ Supplement Tricuspid Valve with Synthetic Substitute, Open Approach (ICD-10-PCS; 2025-04-08)
PROC: B24BZZ4 Ultrasonography of Heart with Aorta, Transesophageal (ICD-10-PCS; 2025-04-08)
PROC: 5A1221Z Performance of Cardiac Output, Continuous (ICD-10-PCS; 2025-04-08)
PROC: 02L70CK Occlusion of Left Atrial Appendage with Extraluminal Device, Open Approach (ICD-10-PCS; 2025-04-08)
PROC: 02HK3JZ Insertion of Pacemaker Lead into Right Ventricle, Percutaneous Approach (ICD-10-PCS; 2025-04-14)
PROC: 02H63JZ Insertion of Pacemaker Lead into Right Atrium, Percutaneous Approach (ICD-10-PCS; 2025-04-14)
PROC: 0JH606Z Insertion of Pacemaker, Dual Chamber into Chest Subcutaneous Tissue and Fascia, Open Approach (ICD-10-PCS; 2025-04-14)
DX: I34.89 Other nonrheumatic mitral valve disorders (principal); I42.8 Other cardiomyopathies; D62 Acute posthemorrhagic anemia; I50.32 Chronic diastolic (congestive) heart failure; E87.1 Hypo-osmolality and hyponatremia; I48.19 Other persistent atrial fibrillation; I44.2 Atrioventricular block, complete; J98.11 Atelectasis; I34.0 Nonrheumatic mitral (valve) insufficiency; I07.1 Rheumatic tricuspid insufficiency; I27.20 Pulmonary hypertension, unspecified; R73.03 Prediabetes; I11.0 Hypertensive heart disease with heart failure; R00.1 Bradycardia, unspecified; E86.1 Hypovolemia; I95.89 Other hypotension; E66.811 Obesity, class 1; Z68.34 Body mass index [BMI] 34.0-34.9, adult; Z79.01 Long term (current) use of anticoagulants; Z79.899 Other long term (current) drug therapy; Z82.49 Family history of ischemic heart disease and other diseases of the circulatory system
CPT/HCPCS: 33208; 33259; 36415; 71045; 71046; 80048; 80053; 81003; 81015; 82248; 82330; 82565; 82805; 82810; 82947; 82962; 83036; 83605; 83735; 84132; 84302; 84520; 85014; 85018; 85025; 85027; 85049; 85610; 85730; 86803; 86850; 86900; 86901; 86920; 87070; 93005; 93308; 93312; 93320; 93321; 93325; 93650; 93880; 97116; 97163; 97166; 97535; C1713; C1785; C1887; C1898; J1250; J2916; P9047; Q9950; Q9967